=== PATIENT | female | born 1960 | race Asian ===

== ENCOUNTER 2016-07-19 19:42 | Emergency (ER) | payer OTHER ==
[~2016-07-19] VITALS: Ht 152.4 cm; Wt 52.7 kg
[~2016-07-19 19:42] MED LIST: ACET325T51 PO; ATEN25TA PO; DOCU250C2 PO; GING550C3 PO; L.AC1CAP6 PO; LEVO25TA5 PO; LOSA100T29 PO; MORP15TA PO; MORP30TA PO; MS15TCR PO; OMEP20CA11 PO; POLY17PO6 PO; PROM12.510 PO; PYRIDOXINE PO; SCOP1PAT TD; SENN-133 PO; TRAZ-115 PO
[2016-07-19 19:44] VITALS: BP 135/93; PULSE 87; RESP 16; O2SAT 100
[2016-07-19] MEDS ORDERED: 0.9% Sodium Chloride 1,000 ML IV ONE ×2 (21:02→22:35)
[2016-07-19] MEDS ORDERED: Ondansetron 2 mg/mL 2 mL Inj IV PRN (21:05)
[2016-07-19] MEDS ORDERED: HYDROmorphone 1 mg/mL Inj IVPUSH PRN (21:05)
[2016-07-19 21:10] LABS: BASOPHILS % (AUTO) 0.6 % (0-3); EOSINOPHILS % (AUTO) 1.8 % (0-5); Mean Corpuscular Hemoglobin 28.3 pg (27.0-35.0); Mean Corpuscular Volume 90.7 fL (81-100); NEUTROPHILS % (AUTO) 83.3 % (40-74); Platelet Count 168 bil/L (150-400)
[2016-07-19 21:22] LABS: Magnesium 2.5 mg/dL (1.6-2.6)
--- NOTE | 2016-07-19 21:40 | ED.REPORT ---
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 Associated symptoms include chills, non-productive cough, nausea, lack of appetite, vomiting, abdominal pain and constant generalized pain. Her most recent round of chemotherapy was four days ago. She has been unable to take pain medication due to vomiting, her last dose of morphine was yesterday. Pt denies diarrhea and dysuria. Nursing Notes Stated Complaint: VOMITING, NO APPETITE, PAIN Chief Complaint: Female Abdominal Pain Nursing Notes Reviewed: Yes Allergies: Coded Allergies: sulfamethoxazole (Verified Allergy, Severe, hives, wheezing, swelling, ) trimethoprim (Verified Allergy, Severe, hives, wheezing, swelling, 07/19/16 ) enalapril (Verified Adverse Reaction, Severe, itching throat, 07/19/16) Scheduled ([Vit B 6 300 Mg]) 1 TAB PO DAILY Atenolol (Atenolol) 25 Mg Tablet 50 MG PO DAILY Bailey Root (Bailey Root) 550 Mg Capsule 550 MG PO DAILY L.acidoph & Paracasei,B.lactis (Probiotic) 10 Billion Cell Capsule 2 TAB PO DAILY Levothyroxine (Levothyroxine) 25 Mcg Tablet 25 MCG PO DAILY Losartan Potassium (Losartan Potassium) 100 Mg Tablet 100 MG PO DAILY Morphine Sulfate (Morphine Sulfate) 30 Mg Tablet 30 MG PO BID Morphine Sulfate ER (MS Contin) 15 Mg Tablet.er 15 MG PO BID Omeprazole (Omeprazole) 20 Mg Capsule.dr 20 MG PO BID Polyethylene Glycol 3350 (Miralax) 17 Gm Powd.pack 17 GM PO DAILY Promethazine (Promethazine) 12.5 Mg Tablet 12.5-25 MG PO q6hrs Scopolamine (Transderm-Scop) 1 Each Patch.td72 1 EACH TD [id number] Sennosides (Senna) 8.6 Mg Tablet 17.2 MG PO HS Scheduled PRN Acetaminophen (Acetaminophen) 325 Mg Tablet 650 MG PO Q4H PRN PRN For Pain Docusate Sodium (Docusate Sodium) 250 Mg Capsule 250 MG PO BID PRN PRN For Constipation Morphine Sulfate (Morphine Sulfate) 15 Mg Tablet 15-30 MG PO q4hrs PRN PRN For Pain Trazodone (Trazodone) 50 Mg Tablet 50 MG PO HS PRN PRN Insomnia General Time Seen by MD: 20:47 Chief Complaint Vomiting Hx Obtained From: Patient, Spouse Arrived By: Walk-in Sudden in Onset?: Yes Onset Occurred: 9 - 12 hours ago Symptom Duration: Since onset Recent Healthcare: Recent doctor visit Similar Sx Previous: Yes Past Medical History Past Medical History Recurrent metastatic breast cancer luminal like, biopsy proven from lung nodule dated November 29, 2014. The patient is starting second-line chemotherapy with CMF on July 16, 2016. Goals are palliative. Left-sided stage III, T3 N2 breast cancer diagnosed in 2006, status post six cycles of TAC chemotherapy, last administered in September 2007, followed by chest wall radiation and five years of adjuvant Femara completed in December 2012. Osteopenia. Past Surgical History left masectomy Smoking History Former Smoker Social History Other Social History: , Local resident Ambulatory Status Independent Review of Systems lack of appetite generalized diffuse pain Full Review of Systems Constitutional: Reports: Chills, Weakness - generalized Respiratory: Reports: Non-productive cough GI: Reports: Abdominal pain, Nausea, Vomiting, Denies: Diarrhea Female: Denies: Dysuria Complete sys rev & neg: except as marked. Physical Exam Vital Signs Vital Signs Date Time Temp Pulse Resp B/P Pulse Ox O2 Delivery O2 Flow Rate FiO2 07/19/16 20:56 37.0 07/19/16 19:44 87 16 135/93 100 Room Air Initial VS: Reviewed ENT: Mucous membranes moist, Conjunctiva normal, No scleral icterus Neck: Supple, Non-tender, Full range of motion Respiratory: Breath sounds normal, Clear to auscultation, No respiratory distress Cardiovascular: Regular rate & rhythm, Heart sounds normal Abdomen / GI: Soft, Non-tender, No guarding, No rebound, No distention Lymphatic: No lymphadenopathy General/Constitutional: Awake, Cooperative Alertness: Positive: Somnolent cath in anterior chest wall, site looks clean Back: Inspection NL, Full range of motion, Non-tender, No CVA tenderness Lymphatic: No cervical adenopathy Interpretation & Diagnostics Lab Results Interpretation Result Diagram: 07/19/16200907/19/162009 Test 07/19/16 20:10 07/19/16 22:50 White Blood Count 3.4th/mm3 (3.8-10.1) Red Blood Count 3.96mil/mm3 (3.90-5.20) Hemoglobin 11.2g/dL (12.0-15.6) Hematocrit 35.9% (35.0-46.0) Mean Corpuscular Volume 90.7fL (81-100) Mean Corpuscular Hemoglobin 28.3pg (27.0-35.0) Mean Corpuscular Hemoglobin Concent 31.2% (32.0-37.0) Red Cell Distribution Width 14.9% (12.3-15.4) Platelet Count 168bil/L (150-400) Neutrophils (%) (Auto) 83.3% (40-74) Lymphocytes (%) (Auto) 11.3% (14-46) Monocytes (%) (Auto) 3.0% (4-12) Eosinophils (%) (Auto) 1.8% (0-5) Basophils (%) (Auto) 0.6% (0-3) Hold Purple Top Tube Received (Received) Hold Blue Top Tube Received (Received) Sodium Level 141mEq/L (134-144) Potassium Level 3.5mEq/L (3.5-5.2) Chloride Level 103mEq/L (97-108) Carbon Dioxide Level 21mmol/L (18-29) Blood Urea Nitrogen 17mg/dL (6-24) Creatinine 0.52mg/dL (0.57-1.00) Estimat Glomerular Filtration Rate 175mL/min (>59) Glucose Level 103mg/dL (60-99) Lactic Acid Level 1.3mmol/L (0.4-2.0) Calcium Level 7.9mg/dL (8.5-10.1) Magnesium Level 2.5mg/dL (1.6-2.6) Total Bilirubin 1.0mg/dL (0.0-1.2) Aspartate Amino Transf (AST/SGOT) 42U/L (0-50) Alanine Aminotransferase (ALT/SGPT) 28U/L (0-32) Alkaline Phosphatase 82U/L (25-150) Total Protein 6.8g/dL (6.4-8.4) Albumin 3.7g/dL (3.4-5.0) Hold Red Top Tube Received (Received) Hold [place] Top Tube Received (Received) Hold Patino Top Tube Received (Received) Urine Color Dark yellow (YELLOW) Urine Appearance Clear (CLEAR,HAZY) Urine pH 6.5 (5.0-8.0) Urine Specific Anthony 1.015 (1.003-1.035) Urine Protein Negativemg/dL (NEG,TRACE) Urine Glucose (UA) Negativemg/dL (NEGATIVE) Urine Ketones 15mg/dL (NEGATIVE) Urine Occult Blood Negative (NEGATIVE) Urine Nitrite Negative (NEGATIVE) Urine Bilirubin Negative (NEGATIVE) Urine Urobilinogen 1.0mg/dL (NORMAL) Urine Leukocyte Esterase Negative (NEGATIVE) Urine RBC 0-2/hpf (0-2) Urine WBC 0-5/hpf (0-5) Urine Epithelial Cells Occasional/hpf (NONE-MOD) Urine Crystals Amorphous urates (NONE Urine Bacteria Few/hpf (NONE-FEW) Urine Hyaline Casts Occasional/lpf (NONE) Urine Granular Casts None seen (NONE SEEN) Urine Waxy Casts None seen (NONE SEEN) Urine Red Blood Cell Casts None seen (NONE SEEN) Urine White Blood Cell Casts None seen (NONE SEEN) Urine Mucus Present (None Seen) Urine Trichomonas None seen (NONE SEEN) Urine Yeast None (NONE SEEN) Urinalysis Comment None Urine Culture Reflexed Not indicated Lab Results Interpretation: NC....2.82 Calcium corrects to 8.1 ECG Interpretation Time: 21:21 Normal ECG Interpretation: Normal sinus rhythm (80) X-Ray Chest Interpretation Chest Xray Interpretation: IMPRESSION: No acute cardiopulmonary disease process. Dictated by: Marissa Lopez MD, PhD on 07/19/2016 at 21:39 Approved by: Marissa Lopez MD, PhD on 07/19/2016 at 21:40 View: Portable Interpretation / Wet Read by: Interpret - Radiologist Re-Eval/Medical Decision Med Decision/Clinical Course NS x2L, IV zofran and dilaudid. symptoms improved. Time of Eval: 23:05 Patient Status: Condition improved Re-Evaluation/Progress Note: Pt rechecked. She is resting comfortably. Plan to consult with oncology and discharge. Consultation : Referral / Consult Name: Wesley Huizar MD Call Returned at: 23:15 Note: Dr. Huizar, oncology, is consulted. Agrees with plan for discharge with nausea medication and to follow up next week. Counseled Regarding: Diagnosis, Lab results, Need for follow-up, When/why to return to ED Discharge & Departure Primary Impression: Dehydration Additional Impressions: Nausea Vomiting Vomiting type: unspecified Vomiting Intractability: unspecified Nausea presence: with nausea Qualified Code: R11.2 - Nausea with vomiting, unspecified Disposition: Home Discharge Condition All VS Reviewed: Yes Condition: Stable Additional Instructions: In the emergency department tonight, we evaluated for vomiting and nausea with weakness. No acute infection is identified. Treatment of symptoms and IV hydration was helpful. We are very glad you are feeling better. Continue previous home nausea medications and try to get adequate fluids. Continue other previous home medications as well. Follow-up with Dr. Uribe next week, call the office on Thursday. Return to emergency department for uncontrolled vomiting, abdominal pain, fevers shaking chills or other new symptoms.. Referrals: Marisol Cosby MD (PCP) Lane Uribe Attestation Portion of this note were transcribed by Venessa Minaya. I, Dr. Arias, personally performed the history, physical exam, and medical decision-making: I reviewed and confirmed the accuracy for the information in the transcribed note. Signed by: carla Liu, 07/19/16 [id number] copies to: Lane Uribe DO; Marisol Cosby MD, Donald L MD Jul 19, 2016 21:39 Venessa Minaya Jul 19, 2016 21:54
--- NOTE | 2016-07-19 21:41 | DRSVH ---
PROCEDURE: X-RAY CHEST ONE VIEW, PORTABLE ([id number]) INDICATIONS: vomiting, weakness, metastatic breast ca TECHNIQUE: One view of the chest was acquired. COMPARISON: [facility], CR, XR CHEST 1VW (PORTABLE), 11/29/2014, 10:10. FINDINGS: Surgical changes and devices: Right chest wall Port-A-Cath. Left chest wall surgical clips. Lungs and pleura: No pleural effusions or pneumothorax. Lungs are clear. Mediastinum: Mediastinal contours appear normal. Heart size is normal. Bones and chest wall: No suspicious bony lesions. Overlying soft tissues appear unremarkable. IMPRESSION: No acute cardiopulmonary disease process. Dictated by: Marissa Lopez MD, PhD on 07/19/2016 at 21:39 Approved by: Marissa Lopez MD, PhD on 07/19/2016 at 21:40
[2016-07-19 23:02] LABS: APPEARANCE,URINE CLEAR (CLEAR,HAZY); COLOR,URINE DARK YELLOW (YELLOW); OCCULT BLOOD,URINE NEGATIVE (NEGATIVE); PH,URINE 6.5 (5.0-8.0)
[2016-07-19] MEDS ORDERED: HepLOK Flush 100 unit/mL 5 mL Inj ONE (23:57)
[2016-07-20 00:01] VITALS: BP 122/76; PULSE 77; RESP 18; O2SAT 96
[2016-09-08] MEDS ORDERED: MULT1CAP33 PO (11:50)
[2016-09-08] MEDS ORDERED: CHOL200025 PO (11:50)
[2016-09-24] MEDS ORDERED: CETI10CA PO (08:20)
[2016-10-08] MEDS ORDERED: OMEP20CA11 PO (09:03)
== END 2016-07-20 00:02 | disposition home or self-care (01) ==
LOC: SED 19:42
DX: E86.0 Dehydration (principal); R11.2 Nausea with vomiting, unspecified; Z85.3 Personal history of malignant neoplasm of breast; Z92.21 Personal history of antineoplastic chemotherapy; Z87.891 Personal history of nicotine dependence
CPT/HCPCS: 71010; 80053; 81000; 83605; 83735; 85025; 93005; 96361; 96374; 96375; 99285; J1170; J1642; J2405; J7030

== ENCOUNTER 2016-11-28 23:30 | Emergency (ER) | payer OTHER ==
[~2016-11-28] VITALS: Ht 152.4 cm; Wt 49.1 kg
[~2016-11-28 23:30] MED LIST changes: -ACET325T51 PO; +CETI10CA PO; +CHOL200025 PO; +EVER10TA PO; +EXEM25TA PO; -MORP15TA PO; -MORP30TA PO; -MS15TCR PO; +MULT1CAP33 PO; -PROM12.510 PO; -SCOP1PAT TD; -SENN-133 PO; -TRAZ-115 PO
[2016-11-28 23:34] VITALS: BP 119/83; PULSE 117; RESP 28; O2SAT 98
--- NOTE | 2016-11-29 00:34 | ED.REPORT ---
HPI-General Illness Date of Service Nov 29, 2016 ED Provider: Dr. Paxton Crowell MD A 56 year old female with a history of left-sided stage III metastatic, luminal- like breast cancer on fifth line therapy and Afinitor (began 11/06/16) s/p left mastectomy, chemotherapy and radiation treatment presents to the ED with dyspnea that began yesterday. Her SOB is exacerbated by lying down and with exertion. She presents to the ED this evening because with concern for apnea and a worsening productive cough. She also describes a pressure in her chest every time she coughs. She denies recent fever. Nursing Notes Stated Complaint: DIFFICULTY BREATHING, LUNG CA Chief Complaint: Respiratory Complaints Nursing Notes Reviewed: Yes Allergies: Coded Allergies: sulfamethoxazole (Verified Allergy, Severe, hives, wheezing, swelling, ) trimethoprim (Verified Allergy, Severe, hives, wheezing, swelling, 11/28/16 ) enalapril (Verified Adverse Reaction, Severe, itching throat, 11/28/16) Scheduled ([Vit B 6 300 Mg]) 1 TAB PO DAILY Atenolol (Atenolol) 25 Mg Tablet 50 MG PO DAILY Cetirizine HCl (Zyrtec) 10 Mg Capsule 10 MG PO HS Everolimus (Afinitor) 10 Mg Tablet 10 MG PO DAILY Exemestane (Aromasin) 25 Mg Tablet 25 MG PO DAILY Bailey Root (Bailey Root) 550 Mg Capsule 550 MG PO DAILY L.acidoph & Paracasei,B.lactis (Probiotic) 10 Billion Cell Capsule 2 TAB PO DAILY Levothyroxine (Levothyroxine) 25 Mcg Tablet 50 MCG PO DAILY Losartan Potassium (Losartan Potassium) 100 Mg Tablet 100 MG PO DAILY Omeprazole (Omeprazole) 20 Mg Capsule.dr 20 MG PO DAILY Polyethylene Glycol 3350 (Miralax) 17 Gm Powd.pack 17 GM PO DAILY Scheduled PRN Albuterol Neb Soln (Albuterol Neb Soln) 2.5 Mg/3 Ml Vial.neb 2.5 MG INHALATION Q4H PRN PRN For Cough Docusate Sodium (Docusate Sodium) 250 Mg Capsule 250 MG PO BID PRN PRN For Constipation Miscellaneous Medications Cholecalciferol (Vitamin D3) (Vitamin D3) 2,000 Unit Tablet 2,000 UNIT PO Multivitamin (Multivitamins) 1 Each Capsule 1 EACH PO General Time Seen by : 00:34 Chief Complaint Breathing problem Hx Obtained From: Patient Arrived By: Walk-in Sudden in Onset?: No Onset Occurred: Yesterday Symptom Duration: Since onset Location: : Chest Quality: Pressure Radiation: : Does not radiate Severity: Current: Mild Severity: Maximum: Mild Associated with: Reports: Chest pain (pressure), Cough, Shortness of breath, Denies: Fever Pertinent Negative: Pt denies other symptoms Exacerbated by: Moving affected area, Standing up Recent Healthcare: No recent hospitalization, Recent doctor visit Past Medical History Past Medical History 1. Recurrent metastatic breast cancer luminal like, biopsy proven from lung nodule dated November 29, 2014. The patient is starting second-line chemotherapy with CMF on July 16, 2016. Goals are palliative. 2. Left-sided stage III, T3 N2 breast cancer diagnosed in 2006, status post six cycles of TAC chemotherapy, last administered in September 2007, followed by chest wall radiation and five years of adjuvant Femara completed in December 2012. 3. Osteopenia. Past Surgical History Left masectomy Smoking History Former Smoker Social History Other Social History: , Local resident Ambulatory Status Walker Review of Systems Full Review of Systems Constitutional: Denies: Fever Respiratory: Reports: Dyspnea on exertion, Prod cough, clear, Shortness of breath Complete sys rev & neg: except as marked. Physical Exam Vital Signs Vital Signs Date Time Temp Pulse Resp B/P Pulse Ox O2 Delivery O2 Flow Rate FiO2 11/29/16 02:34 36.5 98 24 122/86 98 Room Air 11/28/16 23:34 36.5 117 28 119/83 98 Room Air Initial VS: Reviewed Extremities: Vascular intact, Neuro intact, No swelling, No tenderness Skin: Warm, Dry, No cyanosis Neurologic: Alert, Oriented, Nonfocal Psychiatric: Mood/affect normal, Behavior normal, Normal thought content General/Constitutional: Awake, Alert, No acute distress Respiratory / Chest: Atraumatic Rales / Rhonchi: Positive: Rales diffuse (Crackles diffuse) RESPIRATORY: Dull sounds in the left base Cardiovascular: Heart rate NL, Regular rhythm, Heart sounds NL Abdomen: Atraumatic, Soft Interpretation & Diagnostics X-Ray Chest Interpretation Chest Xray Interpretation: IMPRESSION: ilateral pleural effusion Interpretation / Wet Read by: Wet read ED physician Re-Eval/Medical Decision Med Decision/Clinical Course 56-year-old end-stage breast cancer metastatic to liver and lung. She presents with shortness of breath and has some component of bronchospasm, and some component of progressive pleural effusions. She is improved with a nebulizer and had one provided for home use. Follow-up with Dr. Uribe on Thursday. Return if worse. Time of Eval: 02:06 Patient Status: Condition improved Re-Evaluation/Progress Note: Patient is re-evaluated. Her breathing has improved following treatment. She is informed of her X-ray results and diagnosis. The patient understands and agrees with the intended treatment plan. Counseled Regarding: Diagnosis, Lab results, Need for follow-up, When/why to return to ED Discharge & Departure Primary Impression: Bilateral pleural effusion Additional Impressions: Bronchospasm Dyspnea Dyspnea type: unspecified Qualified Code: R06.00 - Dyspnea, unspecified Malignant pleural effusion Disposition: Home Discharge Condition All VS Reviewed: Yes Condition: Improved Patient Instructions: Bronchospasm (ED), Dyspnea (ED), How to Use a Nebulizer ( ED), Pleural Effusion (ED) Additional Instructions: Your oxygen level is currently normal. The discomfort you are feeling is from fluid pressure around the lungs, and some element of bronchospasm in the tubes of the lung. Begin albuterol nebulizer every four hours if you need for tightness and cough. If you are oxygen declines, you may qualify for oxygen at home, but it would not be covered by most insurances with a normal oxygen level on room air. Your doctor can manage that. Call Dr. Uribe first thing Thursday for follow-up. Return here any time over the weekend for new or worsening symptoms despite treatment. Referrals: Marisol Cosby MD (PCP) Scribe Attestation Portions of this note were transcribed by Ivonne Cruz. I, Dr. Crowell personally performed the history, physical exam and medical decision-making; I reviewed and confirmed the accuracy of the information in the transcribed note. copies to: Marisol Cosby MD, Christopher W MD Nov 29, 2016 00:34 IVONNE CRUZ Nov 29, 2016 00:43
[2016-11-29] MEDS ORDERED: Albuterol-Ipratropium 3 mL Inhalation Solution NEB ONE (00:45)
[2016-11-29] MEDS ORDERED: Albuterol 2.5 mg/3 mL Inhalation Solution NEB ONE ×2 (00:45→02:25)
[2016-11-29] MEDS ORDERED: Dexamethasone 20 mg/2 mL Oral Solution PO ONE (00:45)
[2016-11-29] MEDS ORDERED: ALBU2.5V4 INHALATION (02:21)
[2016-11-29 02:34] VITALS: BP 122/86; PULSE 98; RESP 24; O2SAT 98
--- NOTE | 2016-11-29 08:22 | DRSVH ---
PROCEDURE: X-RAY CHEST, TWO VIEWS ([id number]) INDICATIONS: sob TECHNIQUE: 2 views of the chest were acquired. COMPARISON: [facility], CR, XR CHEST 1VW (PORTABLE), 07/19/2016, 21:02. FINDINGS: Surgical changes and devices: Right chest port as before. Lungs and pleura: Small bilateral pleural effusions with adjacent atelectasis. Mild diffuse groundgla ss opacities. No pneumothorax. There is increased right perihilar opacity, indeterminate Mediastinum: Mediastinal contours are normal. Heart size is normal. Bones and chest wall: No suspicious bony abnormalities. Soft tissues appear unremarkable. IMPRESSION: Bilateral small pleural effusions and diffuse groundglass opacities suggesting pulmonary edema. Pleas e correlate clinically Increased right perihilar opacity although technically indeterminate. Recommend short interval one-mo nth followup chest radiographs after treatment to exclude right hilar lymphadenopathy or mass. Dictated by: Ellis Menendez M.D. on 11/29/2016 at 8:18 Approved by: Ellis Menendez M.D. on 11/29/2016 at 8:20
== END 2016-11-29 02:34 | disposition home or self-care (01) ==
LOC: SED 23:30
DX: J91.0 Malignant pleural effusion (principal); J98.01 Acute bronchospasm; Z87.891 Personal history of nicotine dependence; Z85.3 Personal history of malignant neoplasm of breast; Z79.899 Other long term (current) drug therapy; Z88.8 Allergy status to other drugs, medicaments and biological substances
CPT/HCPCS: 71020; 99284; J7613; J7620

== ENCOUNTER 2016-12-11 09:39 | Inpatient (IN) | payer OTHER ==
[2016-12-11] VITALS (7 sets, daily range): BP systolic 100–143; BP diastolic 67–109; PULSE 115–125; RESP 17–27; O2SAT 77–100
[~2016-12-11] VITALS: Ht 152.4 cm; Wt 55.0 kg
[~2016-12-11 09:39] MED LIST changes: +ALBU2.5V4 INHALATION
--- NOTE | 2016-12-11 09:39 | ED.REPORT ---
HPI-Dyspnea / Wheezing Date of Service Dec 11, 2016 ED Provider: Vanita Marmolejo MD The pt is a 56 y/o female w/ a hx of stage 4 breast cancer and and osteopenia presenting to the ED via EMS due to SOB onset 1 week ago. The SOB has been becoming increasingly worse and the pt has also been experiencing abdominal bloating for the last three weeks as well and hand and foot swelling over the last two days. The pt is usually on 15 mg of long acting morphine and 15 mg of short acting morphine but has not taken either this morning. She is taking a chemo pill, is not on home oxygen, is not involved w/ hospice, and is able to eat and drink normally. She also uses edible marijuana which helps with the pain. Nursing Notes Stated Complaint: RESPIRATORY DISTRESS COUGH Chief Complaint: SOB Nursing Notes Reviewed: Yes Allergies: Coded Allergies: sulfamethoxazole (Verified Allergy, Severe, hives, wheezing, swelling, ) trimethoprim (Verified Allergy, Severe, hives, wheezing, swelling, 11/28/16 ) enalapril (Verified Adverse Reaction, Severe, itching throat, 11/28/16) Scheduled ([Vit B 6 300 Mg]) 1 TAB PO DAILY Atenolol (Atenolol) 25 Mg Tablet 50 MG PO DAILY Cetirizine HCl (Zyrtec) 10 Mg Capsule 10 MG PO HS Everolimus (Afinitor) 10 Mg Tablet 10 MG PO DAILY Exemestane (Aromasin) 25 Mg Tablet 25 MG PO DAILY Bailey Root (Bailey Root) 550 Mg Capsule 550 MG PO DAILY L.acidoph & Paracasei,B.lactis (Probiotic) 10 Billion Cell Capsule 2 TAB PO DAILY Levothyroxine (Levothyroxine) 25 Mcg Tablet 50 MCG PO DAILY Losartan Potassium (Losartan Potassium) 100 Mg Tablet 100 MG PO DAILY Omeprazole (Omeprazole) 20 Mg Capsule.dr 20 MG PO DAILY Polyethylene Glycol 3350 (Miralax) 17 Gm Powd.pack 17 GM PO DAILY Scheduled PRN Albuterol Neb Soln (Albuterol Neb Soln) 2.5 Mg/3 Ml Vial.neb 2.5 MG INHALATION Q4H PRN PRN For Cough Docusate Sodium (Docusate Sodium) 250 Mg Capsule 250 MG PO BID PRN PRN For Constipation Miscellaneous Medications Cholecalciferol (Vitamin D3) (Vitamin D3) 2,000 Unit Tablet 2,000 UNIT PO Multivitamin (Multivitamins) 1 Each Capsule 1 EACH PO General Time Seen by MD: 09:38 Chief Complaint Shortness of breath Hx Obtained From: Patient Arrived By: Ambulance Sudden in Onset?: Yes Onset Occurred: 1 week ago Symptom Duration: Since onset Recent Healthcare: Recent doctor visit Past Medical History Past Medical History 1. Recurrent metastatic breast cancer luminal like, biopsy proven from lung nodule dated November 29, 2014. The patient is starting second-line chemotherapy with CMF on July 16, 2016. Goals are palliative. 2. Left-sided stage III, T3 N2 breast cancer diagnosed in 2006, status post six cycles of TAC chemotherapy, last administered in September 2007, followed by chest wall radiation and five years of adjuvant Femara completed in December 2012. 3. Osteopenia. Past Surgical History Left masectomy Smoking History Former Smoker Social History Other Social History: , Local resident Ambulatory Status Walker Review of Systems Denies changes in eating or drinking Respiratory: Reports: Shortness of breath Musculoskeletal: Reports: Extremity swelling (of hands and feet ) Complete sys rev & neg: except as marked. GI: Reports: Abdominal pain (w/ bloating ) Physical Exam Initial Vital Signs Vital Signs (First) Date Time Temp Pulse Resp B/P Pulse Ox O2 Delivery O2 Flow Rate FiO2 12/11/16 09:41 36.4 122 27 143/109 77 Room Air 12/11/16 11:05 10 Initial VS: Reviewed General/Constitutional: Awake, Alert Behavior: Positive: Anxious Neck: Atraumatic, Supple, Full range of motion Respiratory / Chest: Breath sounds = bilat Diminished Breath Sounds: Positive: Decreased bilateral SaO2 of 76% w/ significant work of breathing L mastectomy Cardiovascular: Heart rate NL, Regular rhythm, Heart sounds NL edema of hands and lower extremities ENT: Airway patent, Mucous membranes moist Abdomen: No palpable mass Abdomen is distended and firm w/o significant ascites that more resembles liver enlargement Skin: No rash, Intact Skin is pale and cachectic Head / Eyes: Normocephalic Interpretation & Diagnostics PROCEDURE: CT ANGIO CHEST PULMONARY EMBOLISM ([id number]) IMPRESSION: No pulmonary embolus found. Increasing bilateral pleural effusions, greater on the left than the right, with increased bilateral atelectasis secondary to the effusions, and there is also superimposed mild pulmonary edema/lesser of the lung parenchyma with clear visualization of the areas of pre-existing emphysematous change as a result. Please also refer to dedicated abdomen/pelvis CT with contrast obtained today. Dictated by: Jacobo Antonio M.D. on 12/11/2016 at 13:57 Approved by: Jacobo Antonio M.D. on 12/11/2016 at 14:04 Lab Results Interpretation Result Diagram: 12/11/16 1007 12/11/16 1007 Test 12/11/16 10:07 White Blood Count 13.4th/mm3 (3.8-10.1) Red Blood Count 4.44mil/mm3 (3.90-5.20) Hemoglobin 12.6g/dL (12.0-15.6) Hematocrit 40.3% (35.0-46.0) Mean Corpuscular Volume 90.8fL (81-100) Mean Corpuscular Hemoglobin 28.4pg (27.0-35.0) Mean Corpuscular Hemoglobin Concent 31.3% (32.0-37.0) Red Cell Distribution Width 17.0% (12.3-15.4) Platelet Count 258bil/L (150-400) Neutrophils (%) (Auto) 92.0% (40-74) Lymphocytes (%) (Auto) 2.2% (14-46) Monocytes (%) (Auto) 5.3% (4-12) Eosinophils (%) (Auto) 0.2% (0-5) Basophils (%) (Auto) 0% (0-3) Sodium Level 135mEq/L (134-144) Potassium Level 5.0mEq/L (3.5-5.2) Chloride Level 96mEq/L (97-108) Carbon Dioxide Level 19mmol/L (18-29) Blood Urea Nitrogen 30mg/dL (6-24) Creatinine 1.02mg/dL (0.57-1.00) Estimat Glomerular Filtration Rate 80mL/min (>59) Glucose Level 110mg/dL (60-99) Calcium Level 8.4mg/dL (8.5-10.1) Total Bilirubin 0.8mg/dL (0.0-1.2) Aspartate Amino Transf (AST/SGOT) 152U/L (0-50) Alanine Aminotransferase (ALT/SGPT) 51U/L (0-32) Alkaline Phosphatase 279U/L (25-150) Troponin T 0.047ug/L (0.0-0.011) Total Protein 6.7g/dL (6.4-8.4) Albumin 3.0g/dL (3.4-5.0) Procalcitonin 0.67ng/mL (0.00-0.08) Hold Patino Top Tube Received (Received) X-Ray Chest Interpretation Chest Xray Interpretation: IMPRESSION: 1. Pulmonary edema. 2. Small bilateral pleural fluid collections, left greater than right. 3. Increased opacification left lung base compatible with compressive atelectasis versus less likely pneumonia or aspiration. Please correlate with clinical and laboratory data. Dictated by: Marissa Lopez MD, PhD on 12/11/2016 at 10:41 Approved by: Marissa Lopez MD, PhD on 12/11/2016 at 10:43 View: Portable, 1 view Interpretation / Wet Read by: Interpret - Radiologist CT Abd / Pelvis Interpretation 1. Moderate to large bilateral pleural effusions, mildly increased compared to prior exam. 2. Extensive hepatic metastatic disease, progressive compared to prior exam. 3. Marked abdominal pelvic ascites, increased from prior exam. 4. Extensive osseous metastatic disease, again noted. Dictated by: Sona Giang M.D. on 12/11/2016 at 12:59 Approved by: Sona Giang M.D. on 12/11/2016 at 13:07 Study type: Abdom CT oral contrast Interpretation / Wet Read by: Interpret - Radiologist Re-Eval/Medical Decision Med Decision/Clinical Course Widely metastatic breast cancer. Severe dyspnea with oxygen saturations in the mid 70s due to bilateral pleural effusions and increasing abdominal ascites. Lung discussion with patient and her . At this point would like as much invasive interventions as possible. Have contacted Dr. Naga Cline to see if he can help with draining the malignant pleural effusions and ascites along with all of the complex decision making points that go into those issues. Patient is interested in hospice and would like to go home as soon as as physically possible. Hospice/palleative care consult will need to be obtained Understands the need to change her CODE STATUS to no code She has 2 sons who are currently in the , [place] has been contacted to suggest that they return home Dr. Uribe, her oncologist has been notified of her admission Source of Hx: Old records Re-Evaluation/Progress : Time of Eval: 11:33 Re-Evaluation/Progress Note: Rechecked pt. Discussed plan for CT w/ pts . Consultation #1: Referral / Consult Name: Hollie Neal MD Call Returned at: 11:41 Note: Spoke to radiology to ensure that CT is ordered appropriately. Consultation #2: Consulted With: Surgeon Call Returned at: 16:14 Note: Dr Cline will eval to help with thoracentesis/palliative options Consultation #3: Consulted With: Hospitalist Call Returned at: 16:15 Support Services Coordinator: Will see patient, Agrees with plan, Accepts admit Note: Dr Pelayo Counseled Regarding: Diagnosis, Lab results, Need for admission Discharge & Departure Impression: Primary Impression: Malignant pleural effusion Additional Impressions: Dyspnea Dyspnea type: unspecified Qualified Code: R06.00 - Dyspnea, unspecified Ascites Ascites type: other type Qualified Code: R18.8 - Other ascites Metastatic breast cancer Disposition: ADMITTED TO HOSPITAL Discharge Condition All VS Reviewed: Yes Condition: Stable Referrals: Marisol Cosby MD (PCP) Scribe Attestation Portions of this note were transcribed by Lele Mcmahan. I, Dr. Marmolejo personally performed the history, physical exam and medical decision-making; I reviewed and confirmed the accuracy of the information in the transcribed note. copies to: Lane Uribe DO; Marisol Cosby MD, Shawna L MD Dec 11, 2016 09:39 Lele Mcmahan Dec 11, 2016 10:35
[2016-12-11] MEDS ORDERED: 0.9% Sodium Chloride 1,000 ML IV ONE (10:02)
[2016-12-11] MEDS ORDERED: HYDROmorphone 1 mg/mL Inj IVPUSH ONE ×2 (10:10→15:30)
[2016-12-11] MEDS ORDERED: HYDROmorphone 1 mg/mL Inj IVPUSH PRN (10:10)
[2016-12-11 10:16] LABS: BASOPHILS % (AUTO) 0 % (0-3); EOSINOPHILS % (AUTO) 0.2 % (0-5); MONOCYTES % (AUTO) 5.3 % (4-12); Mean Corpuscular Hemoglobin 28.4 pg (27.0-35.0); Mean Corpuscular Volume 90.8 fL (81-100); Platelet Count 258 bil/L (150-400)
--- NOTE | 2016-12-11 10:44 | DRSVH ---
PROCEDURE: X-RAY CHEST ONE VIEW, PORTABLE ([id number]) INDICATIONS: dyspnea TECHNIQUE: One view of the chest was acquired. COMPARISON: [facility], CR, XR CHEST 1VW, 12/02/2016, 11:53. [facility], CR, XR CHEST 1VW (PORTABLE), 07/19/2016, 21:02. FINDINGS: Surgical changes and devices: Right chest wall Port-A-Cath is stable. Cholecystectomy clips are stabl e. Left axillary clips stable. Lungs and pleura: Bilateral pleural effusions are noted. Cephalization of pulmonary vasculature and b ilateral perihilar opacities noted compatible with pulmonary edema. Increased opacification of the le ft lung base which could represent compressive atelectasis versus pneumonia or aspiration. Mediastinum: Mediastinal contours appear normal. Heart size is normal. Bones and chest wall: No suspicious bony lesions. Overlying soft tissues appear unremarkable. IMPRESSION: 1. Pulmonary edema. 2. Small bilateral pleural fluid collections, left greater than right. 3. Increased opacification left lung base compatible with compressive atelectasis versus less likely pneumonia or aspiration. Please correlate with clinical and laboratory data. Dictated by: Marissa Lopez MD, PhD on 12/11/2016 at 10:41 Approved by: Marissa Lopez MD, PhD on 12/11/2016 at 10:43
[2016-12-11 11:06] LABS: TROPONIN T 0.047 ug/L (0.0-0.011)
--- NOTE | 2016-12-11 14:06 | DRSVH ---
PROCEDURE: CT ANGIO CHEST PULMONARY EMBOLISM ([id number]) INDICATIONS: dyspnea, hypoxia, metastatic cancer TECHNIQUE: After the administration of intravenous contrast, 2 mm thick sections acquired from the pulmonary api vincent to the posterior costophrenic angles. 3-dimensional maximum intensity projection (MIP) coronal a nd sagittal reformats were then acquired through the thorax. For radiation dose reduction, the follo wing was used: automated exposure control, adjustment of mA and/or kV according to patient size. COMPARISON: [facility], CT, CT ABD PELVIS W CON, 12/11/2016, 13:12. [facility], CT, CT CHEST ABD PELVIS W CON, 10/31/2016, 12:36. FINDINGS: Image quality: Excellent. Pulmonary arteries: Pulmonary arteries are normal in size, and demonstrate no intraluminal filling d efects to suggest central pulmonary embolism. Lungs and pleura: Lungs are abnormal with extensive atelectasis associated with bilateral large left greater than right pleural effusions, resulting in atelectasis greater on the left than the right. The pleural effusions show a subtle finding of parietal slight pleural thickening and enhancement. T his raises concern for presence of carcinomatosis as the underlying cause. No pneumothorax. The ae rated lung parenchyma appears plethoric/edematous, with emphysematous change. Central and peripheral airways are patent. Mediastinum: Heart size is normal, without pericardial effusion. No mediastinal or hilar adenopathy . Thoracic aorta is normal in caliber and enhancement. Esophagus is normal in caliber, without hiat al hernia. Bones and chest wall: No suspicious bony lesions. Ribs and thoracic spine appear intact throughout. Thyroid gland appears normal where well visualized. No axillary or supraclavicular adenopathy. Abdomen: Please refer to dedicated CT abdomen/pelvis performed in concert with this examination, for discussion of the extensive pathology involving the liver. IMPRESSION: No pulmonary embolus found. Increasing bilateral pleural effusions, greater on the left than the right, with increased bilateral atelectasis secondary to the effusions, and there is also superimposed mild pulmonary edema/lesser of the lung parenchyma with clear visualization of the areas of pre-existing emphysematous change as a result. Please also refer to dedicated abdomen/pelvis CT with contrast obtained today. Dictated by: Jacobo Antonio M.D. on 12/11/2016 at 13:57 Approved by: Jacobo Antonio M.D. on 12/11/2016 at 14:04
--- NOTE | 2016-12-11 14:09 | DRSVH ---
PROCEDURE: CT ABDOMEN AND PELVIS WITH CONTRAST ([id number]) INDICATIONS: dyspnea, metastatic cancer TECHNIQUE: After the administration of intravenous contrast, 5 mm thick sections acquired from the diaphragm to the symphysis. 5 mm coronal and sagittal reformats were acquired. For radiation dose reduction, the following was used: automated exposure control, adjustment of mA and/or kV according to patient adrian vines. COMPARISON: [facility], CT, CT CHEST ABD PELVIS W CON, 10/31/2016, 12:36. FINDINGS: Image quality: Excellent. ABDOMEN: Lung bases: Lung bases demonstrate moderate to large left and moderate right pleural effusion, mildl y increased compared to prior exam. Heart size is normal. Solid organs: Liver demonstrates innumerable low attenuation hepatic foci, increasing in size and nu mber compared to prior exam. The spleen is normal in size and enhancement. Gallbladder has been aung arabella. Biliary system is non dilated. Pancreas enhances normally. No adrenal nodules. Kidneys demon strate normal size and enhancement, without hydronephrosis. Peritoneum and bowel: Bowel loops demonstrate normal wall thickness and caliber. However, they are partially obscured by significant abdominal and pelvic ascites, markedly increased compared to prior exam. No free fluid or air. Nodes and vessels: No retroperitoneal or mesenteric adenopathy by size criteria. Aorta and inferior vena cava are normal in size. Miscellaneous: No ventral hernias. PELVIS: Genitourinary: Bladder wall thickness is normal. There is a persistent appearance of nodular enhanc ement along the anterior aspect of the uterus suggestive of peritoneal metastatic implant. Miscellaneous: No inguinal hernias or adenopathy. Bones: Extensive osseous metastatic disease is again identified with stable L3 compression deformity. . No vertebral body compression fractures. IMPRESSION: 1. Moderate to large bilateral pleural effusions, mildly increased compared to prior exam. 2. Extensive hepatic metastatic disease, progressive compared to prior exam. 3. Marked abdominal pelvic ascites, increased from prior exam. 4. Extensive osseous metastatic disease, again noted. Dictated by: Sona Giang M.D. on 12/11/2016 at 12:59 Approved by: Sona Giang M.D. on 12/11/2016 at 13:07
[2016-12-11] MEDS ORDERED: Morphine ER 100 mg (MS Contin) Tablet PO ONE (15:30)
[2016-12-11] MEDS ORDERED: Morphine ER 15 mg (MS Contin) Tablet PO ONE (15:35)
[2016-12-11] MEDS ORDERED: MORP-32 PO (16:18)
[2016-12-11] MEDS ORDERED: MORP15TA PO (16:18)
[2016-12-11] MEDS ORDERED: CETI5TAB28 PO (16:18)
--- NOTE | 2016-12-11 17:02 | CONS ---
[address] [address] CONSULTATION REPORT PATIENT: MILLICENT DEL REAL : 1960 MR#: [id number] ADMIT: 12/11/2016 JOB ID: [id number] DATE OF SERVICE: 12/11/2016 REQUESTED BY: Vanita Marmolejo MD HISTORY OF PRESENT ILLNESS: The patient is an unfortunate 56-year-old female with stage 4 breast cancer on 5th line treatment. I was asked to see her because of a large recurrent left pleural effusion with associated shortness of breath and hypoxia. She has widely metastatic hepatic lesions. She had an ultrasonic guided left thoracentesis 10 days ago that drained approximately a liter. There was no chest x-ray after the thoracentesis. The patient reports that she did not get significant improvement in her coughing and shortness of breath. She had a CT scan of the chest PE protocol and then a CT scan abdomen and pelvis today. These studies show increasing bilateral left greater than right pleural effusions with bilateral atelectasis. There is no evidence of a pulmonary embolus. There is pleural thickening and enhancement suggesting carcinomatosis. Her abdomen again shows extensive hepatic metastatic disease which is progressive. There was also pelvic ascites and also extensive osseous metastatic disease. REVIEW OF SYSTEMS: Otherwise negative. PHYSICAL EXAMINATION: Diminutive [place] woman with close supportive family. She is in no acute distress. BMI 21. Temperature 36.4, brachial blood pressure 126/96, pulse 125, respiratory rate 17, O2 sat on 6 L is 100%. Lungs: Decreased breath sounds bilaterally. Cardiac: Regular rhythm. I did not appreciate any murmurs. IMAGING: CT scan of the chest and abdomen are reviewed today, as well as the results of the ultrasound from 10 days ago. LABORATORY RESULTS: From today: White count 13.4, hematocrit is 40, platelet count 258,000. Electrolytes are normal. Creatinine 1.02, glucose 110. IMPRESSION: Large left greater than right pleural effusions. The patient's overall symptomatology did not improve significantly by her history from her last thoracentesis. Before proceeding to another level of management of her pleural effusion such as a chest tube with possible talc sclerosis or a PleurX catheter, I believe another thoracentesis should be performed. If this significantly improves respiratory symptoms and overall adds to palliation, then the next level of intervention could be considered. However, if there is no improvement, then I do not think that up-staging her level of intervention for her pleural fluid would be of any benefit. Also, she very well may have pleural effusions secondary to malignant ascites and in that case there is a relative contraindication to doing anything about the pleural fluid, but I think it is reasonable to do another thoracentesis. I have discussed this with Mannie Amezcua RPA from Radiology. I have put in the order, and also put an order for a chest x-ray to be done after the thoracentesis, and then she can be reassessed tomorrow morning.
--- NOTE | 2016-12-11 17:15 | DRSVH ---
PROCEDURE: X-RAY CHEST ONE VIEW, PORTABLE ([id number]) INDICATIONS: do after thoracentesis TECHNIQUE: One view of the chest was acquired. COMPARISON: [facility], CT, CT ANGIO CHEST PE, 12/11/2016, 13:12. [facility] , CR, XR CHEST 1VW (PORTABLE), 12/11/2016, 10:01. [facility], CR, XR CHEST 1VW, 12/02/2016 , 11:53. FINDINGS: Surgical changes and devices: Port-A-Cath from a right-sided approach extends into the distal SVC. S urgical clips at the left axilla have been previously present and may indicate prior breast carcinoma surgery on that side. Lungs and pleura: No pneumothorax. Lungs are mildly edematous and there likely is a subpulmonic ple ural effusion bilaterally, relatively small in size by plain film appearance. Mediastinum: Mediastinal contours appear normal. Heart size is normal. Bones and chest wall: No suspicious bony lesions. Overlying soft tissues appear unremarkable. IMPRESSION: No pneumothorax, after reported thoracentesis. Port-A-Cath in normal position within the distal SVC. Dictated by: Jacobo Antonio M.D. on 12/11/2016 at 17:11 Approved by: Jacobo Antonio M.D. on 12/11/2016 at 17:13
--- NOTE | 2016-12-11 17:32 | PCM.HPMED ---
Subjective Date of Service Dec 11, 2016 Primary Provider: Admitting Physician: Talat Nava Primary Care Physician: Marisol Cosby MD Attending Physician: Talat Nava Chief Complaint: shortness of breath History of Present Illness: Very pleasant 56 year old female with known diagnosis of metastatic recurrent luminal-like breast cancer, on fifth line therapy with exemestane and Afinitor that was started on November 06, 2016 presents with progressive worsening of shortness of breath over the past several days. She underwent therapeutic thoracentesis about one week ago but today the imaging in the ED (details as noted below) is suggestive of worsening bilateral pleural effusions. Patient is now requesting comfort care only approach and wishes to be setup with hospice at home. General surgery has been consulted in the ED for consideration of further palliative surgical intervention on this very pleasant but unfortunate patient. In addition to the chief complaint noted above patient also reports increased abdominal distention and discomfort. She also reports ongoing weight loss as well as peripheral neuropathy and parasthesias. Review of Systems: Constitutional: Negative, except as otherwise mentioned in the history above. Ophthalmologic: Negative, except as otherwise mentioned in the history above. Cardiovascular: Negative, except as otherwise mentioned in the history above. Respiratory: Negative, except as otherwise mentioned in the history above. Gastrointestinal: Negative, except as otherwise mentioned in the history above. Genitourinary: Negative, except as otherwise mentioned in the history above. Musculoskeletal: Negative, except as otherwise mentioned in the history above. Neurological: Negative, except as otherwise mentioned in the history above. Psychiatric: Negative, except as otherwise mentioned in the history above. Hematologic/Lymphatic: Negative, except as otherwise mentioned in the history above. Allergic/Immunologic: Negative, except as otherwise mentioned in the history above. Allergies Coded Allergies: sulfamethoxazole (Verified Allergy, Severe, hives, wheezing, swelling, ) trimethoprim (Verified Allergy, Severe, hives, wheezing, swelling, 11/28/16 ) enalapril (Verified Adverse Reaction, Severe, itching throat, 11/28/16) Home Medications Cetirizine 10 Mg PO DAILY PRN Everolimus 10 Mg Tablet 10 Mg PO DAILY Exemestane 25 Mg PO DAILY Albuterol Neb Soln 2.5 Mg INHALATION Q4H PRN Morphine Sulfate 15 Mg PO DIRECTED PRN Morphine Sulfate ER 15 Mg PO BID Docusate Sodium 250 Mg PO BID PRN Omeprazole 20 Mg PO DAILY Levothyroxine 50 Mcg PO DAILY Cholecalciferol (Vitamin D3) 2,000 Unit PO Multivitamin 1 Each Capsule (Multivitamins) 1 Each PO Exam Vital Signs & I/O Vital Sign- Last 8 Hours Date Time Temp Pulse Resp B/P Pulse Ox O2 Delivery O2 Flow Rate FiO2 12/11/16 16:04 125 17 126/96 100 Room Air 6 Non-Rebreather 12/11/16 15:58 125 17 126/96 100 6 12/11/16 14:10 118 17 111/80 98 Non-Rebreather 10 12/11/16 11:05 118 20 135/94 99 Non-Rebreather 10 12/11/16 09:41 36.4 122 27 143/109 77 Room Air Lab & Micro Results Laboratory Tests Test 12/11/16 10:07 White Blood Count 13.4th/mm3 (3.8-10.1) Red Blood Count 4.44mil/mm3 (3.90-5.20) Hemoglobin 12.6g/dL (12.0-15.6) Hematocrit 40.3% (35.0-46.0) Mean Corpuscular Volume 90.8fL (81-100) Mean Corpuscular Hemoglobin 28.4pg (27.0-35.0) Mean Corpuscular Hemoglobin Concent 31.3% (32.0-37.0) Red Cell Distribution Width 17.0% (12.3-15.4) Platelet Count 258bil/L (150-400) Neutrophils (%) (Auto) 92.0% (40-74) Lymphocytes (%) (Auto) 2.2% (14-46) Monocytes (%) (Auto) 5.3% (4-12) Eosinophils (%) (Auto) 0.2% (0-5) Basophils (%) (Auto) 0% (0-3) Sodium Level 135mEq/L (134-144) Potassium Level 5.0mEq/L (3.5-5.2) Chloride Level 96mEq/L (97-108) Carbon Dioxide Level 19mmol/L (18-29) Blood Urea Nitrogen 30mg/dL (6-24) Creatinine 1.02mg/dL (0.57-1.00) Estimat Glomerular Filtration Rate 80mL/min (>59) Glucose Level 110mg/dL (60-99) Calcium Level 8.4mg/dL (8.5-10.1) Total Bilirubin 0.8mg/dL (0.0-1.2) Aspartate Amino Transf (AST/SGOT) 152U/L (0-50) Alanine Aminotransferase (ALT/SGPT) 51U/L (0-32) Alkaline Phosphatase 279U/L (25-150) Troponin T 0.047ug/L (0.0-0.011) Total Protein 6.7g/dL (6.4-8.4) Albumin 3.0g/dL (3.4-5.0) Procalcitonin 0.67ng/mL (0.00-0.08) Hold Patino Top Tube Received (Received) Microbiology 12/11/16 Blood Culture, Received Pending Result Diagram: 12/11/16 1007 12/11/16 1007 [facility] Recurrent metastatic breast cancer diagnosed from a lung biopsy lesion dated November 29, 2014 Recently on 5th line therapy with Afinitor and exemestane started November 06, 2016. Hypothyroidism Family History Denies any family history of heart disease Social History Hx Alcohol Use: No Hx Substance Use: No Smoking Status: Former Smoker (quit many years ago) Exam Vital Signs Vital Sign - Last Date Time Temp Pulse Resp B/P Pulse Ox O2 Delivery O2 Flow Rate FiO2 12/11/16 16:04 125 17 126/96 100 Room Air 6 Non-Rebreather 12/11/16 09:41 36.4 General: Alert, Oriented X3, Cooperative, Mild Distress Head: Normal Eyes: PERRLA, EOMI, Scleral Anicteric Nose: Mucous Membr Moist/Dickey Mouth: Mucous Membr Moist/Dickey Neck: Supple Chest & Lungs: Chest Wall Normal, Coarse breath sounds, Crackles (fine bilateral) Cardiovascular: Regular Rate/Rhythm Pulses: NL carotid, radial, femoral, DP, PT Abdomen: Tender, Distended, Normoactive bowel tones Extremities: Other (1+ pitting edema in LE bilaterally up to the knees) Neurological: Grossly Neurologically Intact, Cranial Nerves 2-12 Intact, Normal Speech Additional Information: Psych: Calm, pleasant, appropriate Lab and Diagnostics Result Diagram: 12/11/16 1007 12/11/16 1007 X-Rays, CTs and MRIs Date of Service: 12/11/16 1002 PROCEDURE: X-RAY CHEST ONE VIEW, PORTABLE ([id number]) IMPRESSION: 1. Pulmonary edema. 2. Small bilateral pleural fluid collections, left greater than right. 3. Increased opacification left lung base compatible with compressive atelectasis versus less likely pneumonia or aspiration. Please correlate with clinical and laboratory data. Dictated by: Marissa Lopez MD, PhD on 12/11/2016 at 10:41 Approved by: Marissa Lopez MD, PhD on 12/11/2016 at 10:43 Date of Service: 12/11/16 1121 PROCEDURE: CT ANGIO CHEST PULMONARY EMBOLISM ([id number]) IMPRESSION: No pulmonary embolus found. Increasing bilateral pleural effusions, greater on the left than the right, with increased bilateral atelectasis secondary to the effusions, and there is also superimposed mild pulmonary edema/lesser of the lung parenchyma with clear visualization of the areas of pre-existing emphysematous change as a result. Please also refer to dedicated abdomen/pelvis CT with contrast obtained today. Dictated by: Jacobo Antonio M.D. on 12/11/2016 at 13:57 Approved by: Jacobo Antonio M.D. on 12/11/2016 at 14:04 Date of Service: 12/11/16 1140 PROCEDURE: CT ABDOMEN AND PELVIS WITH CONTRAST ([id number]) IMPRESSION: 1. Moderate to large bilateral pleural effusions, mildly increased compared to prior exam. 2. Extensive hepatic metastatic disease, progressive compared to prior exam. 3. Marked abdominal pelvic ascites, increased from prior exam. 4. Extensive osseous metastatic disease, again noted. Dictated by: Sona Giang M.D. on 12/11/2016 at 12:59 Approved by: Snoa Giang M.D. on 12/11/2016 at 13:07 Assessment & Plan 56 year old female with known diagnosis of metastatic recurrent luminal-like breast cancer presents with progressive worsening of shortness of breath over the past several days. # Acute and recurring bilateral pleural effusions. Present on admission. - Most likely due to underlying metastatic breast cancer - Surgery consulted in ED for consideration of palliative intervention such as thoracentesis or cath/drain placement. Will followup with recs. - In the meantime will start comfort care protocol per patient's wishes. - IV morphine prn both for pain and SOB # History of metastatic luminal-like breast cancer - Patient tells me she wishes to pursue comfort care and palliative approach at this point - Per ED report her oncologist, Dr. Uribe, has been notified and will followup with further recs - Continue with supportive care as noted above # Acute hypoxic respiratory failure and distress, present on admission. - Due to pleural effusion and metastatic cancer noted above - Supportive care and plan as noted above # Elevated Trop, present on admission - Likely demand ischemia from underlying pulmonary edema/pleural effusions. - No further workup at this time per patient's wishes # History of hypothyroidism - Continue with home dose Levothyroxine # Goals of Care - Comfort Care Only - Palliative care and hospice consult in am Expected length of hospital stay is greater than 2 midnights and likely 2-3 days Resuscitation Status: DNR/DNI:Do Not Resuscitate/Intubate (discussed and verified with patient and her ) Time spent 60 min Talat Nava Dec 11, 2016 17:32
[2016-12-11] MEDS ORDERED: Polyethylene Glycol (PEG) 17 Gm Powder PO PRN (17:55)
[2016-12-11] MEDS ORDERED: Alum-Mag Hydrox-Simeth 30 mL Suspension PO PRN (17:55)
[2016-12-11] MEDS ORDERED: Ondansetron 2 mg/mL 2 mL Inj IVPUSH PRN (17:55)
--- NOTE | 2016-12-11 17:55 | DRSVH ---
PROCEDURE: US GUIDED THORACENTESIS BY REFERRING PHYSICIAN ([id number]) INDICATIONS: malignant left pleural effusion TECHNIQUE: The indications, alternatives, benefits, risks, and complications of the procedure were explained to the patient. Written informed consent was obtained and placed in the chart. The chest was examined sonographically, and an appropriate site was chosen for thoracentesis. The skin was prepared and cody ped in the usual sterile fashion, and 1% lidocaine was infiltrated from the skin down through the ple ural surface. A 19-gauge catheter-covered needle was then introduced into the pleural space, the cat heter was advanced and the needle was withdrawn, and thereafter pleural fluid was aspirated. The cat heter was then removed and a dressing was applied. COMPARISON: [facility], CR, XR CHEST 1VW (PORTABLE), 12/11/2016, 16:45. FINDINGS: Access site: Left hemithorax. Needle: One-Step centesis catheter with introducer needle. Fluid volume and description: Pure yellow [address] Barnett. Fluid sent for diagnostic testing: At the request of the ordering healthcare provider. Medications: 1% lidocaine for local anaesthesia. Complications: None; post-procedural chest radiograph is pending to assess for pneumothorax. IMPRESSION: Successful ultrasound-guided thoracentesis. Dictated by: Jacobo Antonio M.D. on 12/11/2016 at 17:52 Approved by: Jacobo Antonio M.D. on 12/11/2016 at 17:53
--- NOTE | 2016-12-11 17:57 | NUR ---
Admit Patient admitted from ED via gurney accompanied by family. Able to transfer to bed from [facility] minimal assist. Came to room on 15 L oxygen via pediatric oxy mask and has been titrated down to 7L and is satting 100% and reports she is comfortable breathing at the moment. IV infusing into patient's port. Patient and family oriented to room and plan has been gone over with family and patient. Patient asked if she was able to control oxygen flow-with oxygen connecting to the wall I instructed the patient to use her call light and we can adjust it as she needs. Patient reports 2/10 pain and states that is tolerable for her. Call light within reach. Family at bedside.
[2016-12-11] MEDS ORDERED: Pantoprazole 4 mg/mL 10 mL Inj IVPUSH ONE (18:25)
[2016-12-11] MEDS ORDERED: Famotidine Inj 20 MG in IV Premix 1 EACH IV ONE (18:45)
[2016-12-11] MEDS: Morphine ER 15 mg (MS Contin) Tablet PO SCH (20:03)
[2016-12-12 00:03] VITALS: BP 120/82; PULSE 103; RESP 17; O2SAT 100
--- NOTE | 2016-12-12 02:08 | NUR ---
Pain Patient ambulated to BR. given routine pain medication and instructed to request more if needed. During rounding will ask if she desired pain medication each time she refused. When asleep patient began to moan and accepted PRN pain medication. No noted decrease in moans, patient refused additional dose. will continue to monitor.
[2016-12-12 06:02] VITALS: BP 118/79; PULSE 105; RESP 18; O2SAT 99
[2016-12-12] MEDS: Pantoprazole 40 mg ER24 Tablet PO SCH (06:46)
[2016-12-12] MEDS: Morphine ER 15 mg (MS Contin) Tablet PO SCH ×2 (08:55→20:28)
[2016-12-12] MEDS ORDERED: Morphine 20 mg/mL Oral Syringe SL/PO PRN (10:20)
--- NOTE | 2016-12-12 10:26 | PROG NOTE ---
[address] [address] PROGRESS NOTE PATIENT: MILLICENT DEL REAL : 1960 MR#: [id number] ADMIT: 12/11/2016 JOB ID: [id number] DATE: 12/12/2016 SUBJECTIVE: The patient is being seen today per hospital rounds. Events over the past 24 hours are noted. The patient admitted to the inpatient service on comfort measures only on December 11, 2016. She presented to the ER with increasing shortness of breath at rest. states that up to that point she was doing relatively well, eating and in no significant pain. Imaging since being in the hospital: CTA of the chest, showing no evidence of PE. However, significant increase in left pleural effusion was noted. CT of the abdomen and pelvis, showing significant increase in necrosis of the liver with new lesions seen compared to the October 31, 2016 scan. Imaging studies were reviewed with myself and Dr. Ellis Menendez confirming disease progression. Scans confirmed refractoriness to current therapy of exemestane and everolimus. At this time, the patient and her have decided to move forward with hospice services only. Clinically, the patient is alert and oriented. Denies any pain. PHYSICAL EXAMINATION: Vital signs showing a blood pressure of 118/79, temperature 36, pulse 105, respiratory 18. She is satting at 99% on 7 L O2 mask. LABORATORY DATA: On admission showing a white cell count of 13, hemoglobin of 12, platelet count of 258. Sodium 135, potassium 5, serum creatinine 1.02, calcium 8.4, AST 152, ALT 51, alk phos 279. ASSESSMENT AND PLAN: The patient is a very pleasant 56-year-old female with end-stage breast cancer refractory to 5th line therapy exemestane and Afinitor. The patient has critical visceral disease with significant disease progression involving the liver confirmed on CT abdomen dated December 11, 2016. After a long discussion with , as well as the patient, the family would prefer to move forward with hospice measures only. They would like all treatments stopped at this time and for the patient to be home with family. Hospice consult for today and transfer to home was ordered. I spoke with Hospitalist and Dr. Kane Pate, regarding the overall plan per wishes of the family. [facility]
[2016-12-12 11:06] VITALS: BP 128/88; PULSE 111; RESP 18; O2SAT 100
--- NOTE | 2016-12-12 11:09 | NUR ---
Palliative Care BUS REPAIR SUPERVISOR Note12/12/1709:30AM D: This abstract writer met with pt.'s , Avery, to review Hospice choices as pt. and family would like to transition to comfort care focus and have pt. return home with Hospice support. Pt. was resting during the time this abstract writer visited. Hospice provider/choice list was reviewed with Avery who selected [facility] as family resides in [place]. Avery shared he wants pt. to DC home as soon as Hospice can start providing care support. He told this abstract writer there are several family members who are nurses and who will help with pt.'s care needs at home. Per Avery, pt. and family understand she is closer to dying and they have strong alma that 'God wants her back' and are ready to accept this. This abstract writer spoke with [facility] BUS REPAIR SUPERVISOR, Nichelle King, to let her know that family wants [facility] at time of DC. This BUS REPAIR SUPERVISOR offered to coordinate referral to [facility] and Nichelle agreed to this. This abstract writer spoke with [facility]. Per their request this abstract writer faxed pt.'s face sheet, Hospice order, and recent clinical documentation for review. [facility] was notified that further discharge coordination should be directed to Nichelle. The [facility] cell phone number was left with [facility] staff for this purpose. [facility] understands that the request for services is considered urgent due to pt.'s declining condition and need for symptom management once she discharges from [facility]. This abstract writer let pt.'s know that referral for [facility] has been made and they will be in touch with him ALEX regarding plan for pt. to start Hospice services at home. A: Family aware that pt. is closer to end of life and they are determined to help her return home with in-home hospice support. Per , some family members work in the medical field and are committed to assisting pt. with care needs. P: [facility] staff to continue coordinating discharge needs for pt. [facility] to provide in-home hospice care once pt. DC's from [facility]. Zaira Brand, BUS REPAIR SUPERVISOR, [facility] Services
--- NOTE | 2016-12-12 11:13 | NUR ---
Palliative Care Palliative Care received order from Dr Nava 12/11/16 (late) to assist with goals of care. Patient admitted 12/11/16. Avery Brice () [phone] Palliative Care to follow. Leena Atkinson
--- NOTE | 2016-12-12 11:25 | PCM.CONPAL ---
Date of Service Dec 12, 2016 Date of Hospital Admission: Dec 11, 2016 at 16:25 Date of Palliative Consult: Dec 12, 2016 Requesting Provider: Talat Nava Reason Palliative Care Consult: Goals of Care Discussion, Hospice Referral & Discussion Hospital Unit @time of consult: Orthopedic/Surgical Care Palliative Care Recommendation Unfortunate 56-year-old woman with widely metastatic breast cancer, admitted with progressive dyspnea and weakness in the setting of known bilateral malignant pleural effusions (L>R). Patient and her have expressed wish to transition to hospice/end-of-life care and discontinue ongoing chemotherapy. Palliative medicine consult to assist with symptom management, conversations regarding goals of care and hospice referral. Per surgical consultants, to have drainage catheter placed today (by either surgery or IR) Case discussed with OSC/city planner- she has communicated with [facility] and their plan is to meet the patient at her home in [place] on Thursday, 12/14 at 5 PM. At that time they would do their intake assessment and assume her care (my impression is that she will definitely be accepted by hospice so we can reasonably count on that as a plan). The only caveat would be if she deteriorates clinically over the next several days to the degree that she could not return home at all but would have to remain hospitalized or require SNF placement. Summary of palliative recommendations: -Symptom management (Pain/other)- continue sustained release morphine 15 mg twice daily. Continue IV MS prn breakthrough pain as ordered by hospitalist, but will also initiate oral morphine concentrate, 20 mg per mL, 5-20 mg PO/SL Q 2 hr prn breakthrough pain/dyspnea/distress. Start dexamethasone, 2 mg IV daily, with plan to transition to oral at time of discharge. Consider increasing dose in the coming days as tolerated/depending on response. This may provide multiple benefits including decreased discomfort , improved appetite, improved energy, decreased nausea, etc. Start scheduled olanzapine, 2.5 mg SL at HS for nausea. Adjust dose upwards in the coming days as needed. At her 's request, start Ambien 5 mg HS prn. He tells me this was recommended by a friend. He notes his has been a lifelong insomniac. -DPOA/Advanced Directives/POLST- DO NOT RESUSCITATE/DO NOT INTUBATE/ transitioning to hospice. Will assist patient in completing a POLST reflecting their wishes prior to discharge. -Family/emotional support- palliative will continue to follow and provide support. Will request supplier quality specialist visit. Additional Medical Diagnoses with primary management by Hospitalist team include : # Acute and recurring bilateral pleural effusions. Present on admission. # History of metastatic luminal-like breast cancer # Acute hypoxic respiratory failure and distress, present on admission. # Elevated Trop, present on admission # History of hypothyroidism Problems: End of Life Preferences DO NOT RESUSCITATE/DO NOT INTUBATE/transitioning to comfort-hospice care Goals of Care hopes she may return home as soon as possible with hospice support Disposition As above Resuscitation Status Resuscitation Status: DNR/DNI:Do Not Resuscitate/Intubate POLST Updates/Changes Previous POLST?: No . Advanced Care Planning Address: Comfort care Pain: Mild Symptom management: Nausea, Drowsiness/sleepiness, Dyspnea, Pain Pt History History of Present Illness Per admission H&P: Very pleasant 56 year old female with known diagnosis of metastatic recurrent luminal-like breast cancer, on fifth line therapy with exemestane and Afinitor that was started on November 06, 2016 presents with progressive worsening of shortness of breath over the past several days. She underwent therapeutic thoracentesis about one week ago but today the imaging in the ED (details as noted below) is suggestive of worsening bilateral pleural effusions. Patient is now requesting comfort care only approach and wishes to be setup with hospice at home. General surgery has been consulted in the ED for consideration of further palliative surgical intervention on this very pleasant but unfortunate patient. In addition to the chief complaint noted above patient also reports increased abdominal distention and discomfort. She also reports ongoing weight loss as well as peripheral neuropathy and parasthesias. Palliative medicine consulted to assist patient and her in determination of cause of care. Her also specifically requested information regarding referral to hospice. Prior to visiting, I reviewed her records in the EMR in detail, including her outpatient oncology records dating back to 2009. Spoke with her nurse and attempted to contact her oncologist, Dr. Uribe, by phone , but he was out of the office today. I did leave a message with his nurse regarding the patient's admission and her wish to transition to hospice. On my arrival, patient is found seated at side of bed. Her is with her. His primary interest was in finding out what we could do to help with her symptoms- her pain remains generally well controlled, but she continues to be dyspneic, nauseated and anorectic. We talked at length about these symptoms and options for therapy, but also talked about them in the setting of her advanced and progressive tumor burden. She noted she also has had chronic insomnia and requested Ambien (which he says had been recommended by a friend). See elsewhere for medication recommendations in response to her symptoms. We discussed hospice and confirmed his wish for a hospice informational visit. He is quite interested in activating hospice as soon as possible so that he will be able to continue to care for his at home. He notes that their 2 sons are returning from other parts of the country later today (they are both active duty but have obtained leave to come home). He inquired as to what our best guess might be of her survival and I advised him my sense was that, at best, her time remaining was measured in weeks (though , of course, that she was ill enough that she could sooner). He said that he did not want to do anything that would prolong her dying process and that they had talked and she wants to be allowed now to pass away naturally and peacefully. We talked about hospice management of symptoms, and the goal of optimizing quality of whatever time she has left and he thought that sounded perfect. (Because the patient lives in [place], palliative IMPROVEMENT ENGINEER communicated with [facility] who will become involved in her care as soon as possible.) Past Medical History Significant PMH Noted: 1. Recurrent metastatic breast cancer luminal like, biopsy proven from lung nodule dated November 29, 2014. 2. Left-sided stage III, T3 N2 breast cancer diagnosed in 2006 3. Osteopenia. Past Surgical History Left masectomy Social History Occupation: Medically disabled Family Members Issues: 's primary concern is the patient's comfort. He wondered what might be done to help with her appetite. His hope is to have her return home as soon as possible Social Support: Patient's 2 sons are returning from [id number] active duty to be with patient and Living Situation: As above Responsive Patient Symptoms Pain (current): Mild Nausea: Mild Drowsiness/Sleepiness: Mild Shortness of Breath: Mild POLST at Time of Admission Previous POLST?: No Allergy Allergies Reviewed: Yes Medications Current Medications: Current Medications Hydromorphone HCl 1 mg Q15MIN PRN IVPUSH Last administered on 12/11/16 11:40; Admin Dose 1 MG; Start 12/11/16 at 10:10; Stop 12/11/16 at 17:54; Status DC Al Hydrox/Mg Hydrox/Simethicone 30 ml Q6H PRN PO; Start 12/11/16 at 17:55 Ondansetron HCl 4 to 8 mg Q4H PRN IVPUSH; Start 12/11/16 at 17:55 Senna 17.2 mg BID PRN PO; Start 12/11/16 at 17:55 Polyethylene Glycol 17 gm DAILY PRN PO; Start 12/11/16 at 17:55 Acetaminophen 975 mg Q6H PRN PO; Start 12/11/16 at 17:55 Morphine Sulfate 1-4 mg Q1H PRN IV; Start 12/11/16 at 17:55; Stop 12/11/16 at 23:56; Status DC Albuterol 2.5 mg Q4H PRN NEB; Start 12/11/16 at 20:00 Docusate Sodium 250 mg BID PRN PO; Start 12/11/16 at 18:00 Levothyroxine Sodium 50 mcg DAILY PO Last administered on 12/12/16 08:54; Admin Dose 50 MCG; Start 12/12/16 at 08:30 Morphine Sulfate 15 mg BID PO Last administered on 12/12/16 08:55; Admin Dose 15 MG; Start 12/11/16 at 20:30 Loratadine 10 mg DAILY PRN PO; Start 12/12/16 at 08:30 Pantoprazole 40 mg 0630 PO Last administered on 12/12/16 06:46; Admin Dose 40 MG; Start 12/12/16 at 06:30 Morphine Sulfate 1-4 mg Q1H PRN IV Last administered on 12/12/16 04:50; Admin Dose 2 MG; Start 12/11/16 at 23:56 Scheduled Everolimus (Afinitor) 10 Mg Tablet 10 MG PO DAILY Exemestane (Aromasin) 25 Mg Tablet 25 MG PO DAILY Levothyroxine (Levothyroxine) 25 Mcg Tablet 50 MCG PO DAILY Morphine Sulfate ER (Morphine Sulfate ER) 15 Mg Tablet 15 MG PO BID Omeprazole (Omeprazole) 20 Mg Capsule.dr 20 MG PO DAILY Scheduled PRN Albuterol Neb Soln (Albuterol Neb Soln) 2.5 Mg/3 Ml Vial.neb 2.5 MG INHALATION Q4H PRN PRN For Cough Cetirizine (Cetirizine) 5 Mg Tablet 10 MG PO DAILY PRN PRN ALLERGY Docusate Sodium (Docusate Sodium) 250 Mg Capsule 250 MG PO BID PRN PRN For Constipation Morphine Sulfate (Morphine Sulfate) 15 Mg Tablet 15 MG PO DIRECTED PRN PRN For Pain Miscellaneous Medications Cholecalciferol (Vitamin D3) (Vitamin D3) 2,000 Unit Tablet 2,000 UNIT PO Multivitamin (Multivitamins) 1 Each Capsule 1 EACH PO Objective Findings Exam Vital Sign - Last Date Time Temp Pulse Resp B/P Pulse Ox O2 Delivery O2 Flow Rate FiO2 12/12/16 11:06 36.9 111 18 128/88 100 OxyMask 7.00 Intake and Output 12/11/16 12/11/16 12/12/16 Cumulative From/Thru 15:00 23:00 07:00 12/11/16 09:41 - 12/12/16 06:02 Intake Total 1000 ml 125 ml 323 ml 1448 ml Output Total 0 ml 300 ml 300 ml Balance 1000 ml 125 ml 23 ml 1148 ml Intake Oral 0 ml 0 ml 0 ml IV Total 1000 ml 125 ml 323 ml 1448 ml Output Urine Total 0 ml 300 ml 300 ml # Bowel Movements 0 0 Objective Very frail-appearing [place] woman sitting at bedside. Vital signs noted. Skin is warm and dry. Head and neck exam without acute focal findings. Heart sounds regular, lungs with decreased breath sounds at both bases. Abdomen is ascitic/distended with minimal tenderness (abdominal CT reveals significant ascites and marked hepatomegaly with metastatic disease). Lower extremities with edema. Lab/Diagnostics Lab and Imaging results reviewed in detail in EMR. Time spent Total time 65 minutes; >50% face to face with patient and family, providing counselling regarding plans and recommendations, and in care coordination with her medical teams. Of the above total time, 15 minutes counseling for advanced care planning with the patient and her , reviewing their goals and wishes and to transition to hospice. copies to: Lane Uribe DO; Marisol Cosby MD, David F MD Dec 12, 2016 11:25
[2016-12-12] MEDS: Dexamethasone 4 mg/mL Inj IVPUSH SCH (12:07)
--- NOTE | 2016-12-12 15:00 | NUR ---
spiritual care: pall care provider request resource-connection visit and blessing/prayer. Pt's family member reported anticipating visit from senior sales executive. pt also appreciative of eucharistic visitor support. able to follow as needed.
--- NOTE | 2016-12-12 15:37 | PCM.PNMED ---
Subjective Date of Service Dec 12, 2016 Subjective Denies any new issues. Continues to report shortness of breath and abdominal discomfort. Exam Vital Signs Vital Sign - Last Date Time Temp Pulse Resp B/P Pulse Ox O2 Delivery O2 Flow Rate FiO2 12/12/16 11:06 36.9 111 18 128/88 100 OxyMask 7.00 Intake and Output 12/11/16 12/11/16 12/12/16 Cumulative From/Thru 15:00 23:00 07:00 12/11/16 09:41 - 12/12/16 06:02 Intake Total 1000 ml 125 ml 323 ml 1448 ml Output Total 0 ml 300 ml 300 ml Balance 1000 ml 125 ml 23 ml 1148 ml Intake Oral 0 ml 0 ml 0 ml IV Total 1000 ml 125 ml 323 ml 1448 ml Output Urine Total 0 ml 300 ml 300 ml # Bowel Movements 0 0 Exam General: Alert, Cooperative, Mild Distress Head: Normal Eyes: Scleral Anicteric Nose: Mucous Membr Moist/[place] Mouth: Mucous Membr Moist/[place] Neck: Supple Chest & Lungs: Chest Wall Normal, Coarse breath sounds, Crackles (fine bilateral) Cardiovascular: Regular Rate/Rhythm Abdomen: Tender, Distended, Normoactive bowel tones Extremities: Other (2+ pitting edema in LE bilaterally up to the knees) Neurological: Grossly Neurologically Intact, Cranial Nerves 2-12 Intact, Normal Speech Psych: Calm, pleasant, appropriate IVs and Medications Medications Reviewed: Medications were reviewed in detail Lab and Diagnostics Result Diagram: 12/11/16 1007 12/11/16 1007 X-Rays, CTs and MRIs Date of Service: 12/11/16 1002 PROCEDURE: X-RAY CHEST ONE VIEW, PORTABLE ([id number]) IMPRESSION: 1. Pulmonary edema. 2. Small bilateral pleural fluid collections, left greater than right. 3. Increased opacification left lung base compatible with compressive atelectasis versus less likely pneumonia or aspiration. Please correlate with clinical and laboratory data. Dictated by: Marissa Lopez MD, PhD on 12/11/2016 at 10:41 Approved by: Marissa Lopez MD, PhD on 12/11/2016 at 10:43 Date of Service: 12/11/16 1121 PROCEDURE: CT ANGIO CHEST PULMONARY EMBOLISM ([id number]) IMPRESSION: No pulmonary embolus found. Increasing bilateral pleural effusions, greater on the left than the right, with increased bilateral atelectasis secondary to the effusions, and there is also superimposed mild pulmonary edema/lesser of the lung parenchyma with clear visualization of the areas of pre-existing emphysematous change as a result. Please also refer to dedicated abdomen/pelvis CT with contrast obtained today. Dictated by: Jacobo Antonio M.D. on 12/11/2016 at 13:57 Approved by: Jacobo Antonio M.D. on 12/11/2016 at 14:04 Date of Service: 12/11/16 1140 PROCEDURE: CT ABDOMEN AND PELVIS WITH CONTRAST ([id number]) IMPRESSION: 1. Moderate to large bilateral pleural effusions, mildly increased compared to prior exam. 2. Extensive hepatic metastatic disease, progressive compared to prior exam. 3. Marked abdominal pelvic ascites, increased from prior exam. 4. Extensive osseous metastatic disease, again noted. Dictated by: Sona Giang M.D. on 12/11/2016 at 12:59 Approved by: Sona Giang M.D. on 12/11/2016 at 13:07 Assessment & Plan 56 year old female with known diagnosis of metastatic recurrent luminal-like breast cancer presents with progressive worsening of shortness of breath over the past several days. # Acute and recurring bilateral pleural effusions. Present on admission. - Most likely due to underlying metastatic breast cancer - Appreciate surgery consult. Will followup with recs. - Continue with comfort care protocol per patient's wishes. - IV morphine prn both for pain and SOB # History of metastatic luminal-like breast cancer - Appreciate oncology consult. Will followup with recs - Continue with supportive care as noted above # Acute hypoxic respiratory failure and distress, present on admission. - Due to pleural effusion and metastatic cancer noted above - Supportive care # Elevated Trop, present on admission - Likely demand ischemia from underlying pulmonary edema/pleural effusions. - No further workup at this time per patient's wishes # History of hypothyroidism - Continue with home dose Levothyroxine # Goals of Care - Comfort Care Only - Appreciate palliative care consult. Will followup with recs - Awaiting hospice consult Dispo: Likely home with hospice in 1-2 days VTE Mechanical Devices: Intermittant Pneumatic CD Resuscitation Status: DNR/DNI:Do Not Resuscitate/Intubate Talat Nava Dec 12, 2016 15:37
--- NOTE | 2016-12-12 16:33 | NUR ---
O2/activity/pain Pt using 6L via oximask intermittently. She does get anxious when the mask is not flowing and nearby. Bedrest for most of shift. She did sit up on edge of bed to eat and walked to BR with nurse assist. Generalized weakness and unsteady on feet. She does not attempt to get out of bed without assist. Denies pain most of shift, but complains of SOB. Scheduled morphine given. Pt and family aware of prn morphine and agree to ask if needed.
--- NOTE | 2016-12-12 19:17 | PCM.ADCARE ---
Advance Care Planning Note Purpose of Encounter: Goals of care regarding breast cancer Parties in Attendance: patient and her Decisional Capacity: decisional Subjective: continued shortness of breath Objective: awake and alert Goals of Care Determinations: patient does not wish to have any further interventions at this time and wishes to go home with hospice as soon as possible Plan: home with hospice CODE STATUS: DNR/DNI/Comfort care only Time Spent Adv.Care Plannin minutes of face to face answering patient and her husbands questions about current plan of care and test results from admission. Talat Nava Dec 12, 2016 19:17
[2016-12-12] MEDS: OLANZapine Zydis ODT 5 mg Tablet SL SCH (20:28)
[2016-12-13] VITALS (7 sets, daily range): BP systolic 116–122; BP diastolic 81–85; PULSE 106–121; RESP 18–20; O2SAT 96–99
--- NOTE | 2016-12-13 05:31 | NUR ---
Pain/Nausea? Breathing Routine pain and nausea medication effective through out shift. C/O difficulty breathing RT notified and PRN NEB treatment administered. Family at bed side. Intentional rounding and care continues.
[2016-12-13] MEDS: Albuterol 2.5 mg/3 mL Inhalation Solution NEB PRN ×4 (05:45→22:19)
[2016-12-13] MEDS: Dexamethasone 4 mg/mL Inj IVPUSH SCH (08:23)
[2016-12-13] MEDS: Morphine 2 mg/mL 5 mL Oral Solution PO PRN ×2 (08:24→23:29)
[2016-12-13] MEDS: Pantoprazole 40 mg ER24 Tablet PO SCH (08:25)
[2016-12-13] MEDS: Morphine ER 15 mg (MS Contin) Tablet PO SCH ×2 (14:08→20:28)
--- NOTE | 2016-12-13 17:58 | PCM.PNMED ---
Subjective Date of Service Dec 13, 2016 Subjective Denies any new issues. Exam Vital Signs Vital Sign - Last Date Time Temp Pulse Resp B/P Pulse Ox O2 Delivery O2 Flow Rate FiO2 12/13/16 16:41 36.6 117 18 117/81 98 OxyMask 7.00 Intake and Output 12/12/16 12/12/16 12/13/16 Cumulative From/Thru 15:00 23:00 07:00 12/11/16 09:41 - 12/13/16 06:54 Intake Total 200 ml 1648 ml Output Total 300 ml Balance 200 ml 1348 ml Intake Oral 200 ml 200 ml IV Total 1448 ml Output Urine Total 300 ml # Voids 1 2 3 # Bowel Movements 0 0 Exam Full exam deferred due to patient being comfort care only now. General: Comfortable. No acute distress. Eyes: Scleral Anicteric Nose: Mucous Membr Moist/[place] Mouth: Mucous Membr Moist/[place] Neck: Supple IVs and Medications Medications Reviewed: Medications were reviewed in detail Lab and Diagnostics Result Diagram: 12/11/16 1007 12/11/16 1007 X-Rays, CTs and MRIs Date of Service: 12/11/16 1002 PROCEDURE: X-RAY CHEST ONE VIEW, PORTABLE ([id number]) IMPRESSION: 1. Pulmonary edema. 2. Small bilateral pleural fluid collections, left greater than right. 3. Increased opacification left lung base compatible with compressive atelectasis versus less likely pneumonia or aspiration. Please correlate with clinical and laboratory data. Dictated by: Marissa Lopez MD, PhD on 12/11/2016 at 10:41 Approved by: Marissa Lopez MD, PhD on 12/11/2016 at 10:43 Date of Service: 12/11/16 1121 PROCEDURE: CT ANGIO CHEST PULMONARY EMBOLISM ([id number]) IMPRESSION: No pulmonary embolus found. Increasing bilateral pleural effusions, greater on the left than the right, with increased bilateral atelectasis secondary to the effusions, and there is also superimposed mild pulmonary edema/lesser of the lung parenchyma with clear visualization of the areas of pre-existing emphysematous change as a result. Please also refer to dedicated abdomen/pelvis CT with contrast obtained today. Dictated by: Jacobo Antonio M.D. on 12/11/2016 at 13:57 Approved by: Jacobo Antonio M.D. on 12/11/2016 at 14:04 Date of Service: 12/11/16 1140 PROCEDURE: CT ABDOMEN AND PELVIS WITH CONTRAST ([id number]) IMPRESSION: 1. Moderate to large bilateral pleural effusions, mildly increased compared to prior exam. 2. Extensive hepatic metastatic disease, progressive compared to prior exam. 3. Marked abdominal pelvic ascites, increased from prior exam. 4. Extensive osseous metastatic disease, again noted. Dictated by: Sona Giang M.D. on 12/11/2016 at 12:59 Approved by: Sona Giang M.D. on 12/11/2016 at 13:07 Assessment & Plan 56 year old female with known diagnosis of metastatic recurrent luminal-like breast cancer presents with progressive worsening of shortness of breath over the past several days. # Acute and recurring bilateral pleural effusions. Present on admission. - Most likely due to underlying metastatic breast cancer - Appreciate surgery consult. Will followup with recs. - Continue with comfort care protocol per patient's wishes. - IV morphine prn both for pain and SOB # History of metastatic luminal-like breast cancer - Appreciate oncology consult. Will followup with recs - Continue with supportive care as noted above # Acute hypoxic respiratory failure and distress, present on admission. - Due to pleural effusion and metastatic cancer noted above - Supportive care # Elevated Trop, present on admission - Likely demand ischemia from underlying pulmonary edema/pleural effusions. - No further workup at this time per patient's wishes # History of hypothyroidism - Continue with home dose Levothyroxine # Goals of Care - Comfort Care Only - Appreciate palliative care consult. Will followup with recs - Awaiting hospice consult Dispo: Likely home with hospice in AM VTE Mechanical Devices: Intermittant Pneumatic CD Resuscitation Status: DNR/DNI:Do Not Resuscitate/Intubate Talat Nava Dec 13, 2016 17:58
--- NOTE | 2016-12-13 18:34 | NUR ---
SOB/cough Pt. continues to have intermittent boughts of SOB, "unable to catch my breath, have a crackling sound in my throat." RT has been called for neb tx Q4 hrs; pt. reporting ease of breathing and ability to bring up secretions post neb tx. Pt. has been given 2mg IV morphine to help ease breathing and for comfort. Pt. and family report that this has been helpful. Pt. has an irritable cough; also complaining that she is having difficulty drinking thin liquids. Liquids thickened with thickener; helpful and more tolerable per pt. Pt. would like somthing for cough and also to have ensure with meals. paged for this request. Have not received reply. Pt. currently resting, denies pain. High fowlers position at all times. Family at bedside. Care continues.
[2016-12-13] MEDS: OLANZapine Zydis ODT 5 mg Tablet SL SCH (20:28)
[2016-12-14] VITALS (7 sets, daily range): BP systolic 101–123; BP diastolic 52–79; PULSE 107–117; RESP 16–20; O2SAT 92–100
[2016-12-14] MEDS: Morphine 2 mg/mL 5 mL Oral Solution PO PRN ×3 (04:34→14:40)
--- NOTE | 2016-12-14 04:46 | NUR ---
Cough Patient c/o painful persistent cough, Hospitalist notified. New cough medication in combination with liquid pain medications was effective for managing cough. Up with assistance to bathroom, family at bedside. Noted edema in all extremities. O2 saturation 87-99% on 7L O2 depending on severity of cough. single NEB treatment given correction through shift, patient denied need for repeat administration when asked. Care continues
[2016-12-14] MEDS: Pantoprazole 40 mg ER24 Tablet PO SCH (06:30)
[2016-12-14] MEDS ORDERED: 0.9% Sodium Chloride 250 ML IV SCH (08:24)
[2016-12-14] MEDS ORDERED: Sodium Chloride LOK Flush 10 mL Syringe IVFLUSH PRN ×2 (08:25)
[2016-12-14] MEDS ORDERED: HepLOK Flush 100 unit/mL 5 mL Inj IVFLUSH PRN (08:25)
[2016-12-14] MEDS: Morphine ER 15 mg (MS Contin) Tablet PO SCH (08:30)
[2016-12-14] MEDS: Dexamethasone 4 mg/mL Inj IVPUSH SCH (08:41)
[2016-12-14] MEDS: Albuterol 2.5 mg/3 mL Inhalation Solution NEB PRN ×2 (09:58→14:54)
--- NOTE | 2016-12-14 10:30 | NUR ---
Hospice Discharge Communication between MD and Pt Pt and sons at expressed verbal concern about pt going home or discharge to home with Hospice today as they states "no one from Hospice has contacted us and we do not have equipment or experienced people at home to care for her." expressed verbally that I am upset that no one has contacted me and that I don't have a proper bed for her to go home, stated "I don't care if insurance does not pay for her stay here tonight, I will pay for it." Sons were in agreement. MD present for conversation and stated, she could stay one more night or until Hospice has made contact and things in place for her to go home. Sons and relieved at conversation.
[2016-12-14] MEDS ORDERED: BENZ100C8 PO (10:32)
[2016-12-14] MEDS ORDERED: ZLP5T PO (10:32)
[2016-12-14] MEDS ORDERED: MORP10SO PO (10:32)
[2016-12-14] MEDS ORDERED: OLAN5TAB25 SL (10:32)
[2016-12-14] MEDS ORDERED: SENN-133 PO (10:32)
[2016-12-14] MEDS ORDERED: DEX1 PO (10:32)
[2016-12-14] MEDS ORDERED: POLY17PO6 PO (10:32)
--- NOTE | 2016-12-14 11:01 | NUR ---
Medications Pt refusing PO medication this morning, except liquid PO Morphine; pt requested Neb treatment this morning and states "feels better" after treatment by RT given; pt O2 turned down to 6L Oxymask and humidified. Noted agonal breathing after Neb treatment; IV 2mg Morphine suggested to pt and family and both in agreement. IV 2mg Morphine administered, pt seemed more relaxed and at rest. Will continue to monitor with frequent rounds.
--- NOTE | 2016-12-14 16:15 | PCM.DIMED ---
Discharge Instructions Date of Service Dec 14, 2016 Dates of Hospitalization Dec 11, 2016 at 16:25 Discharge Diagnosis Discharge Diagnosis # Acute and recurring bilateral pleural effusions. Present on admission. - Most likely due to underlying metastatic breast cancer # History of metastatic luminal-like breast cancer # Acute hypoxic respiratory failure and distress, present on admission. - Due to pleural effusion and metastatic cancer noted above # Elevated Trop, present on admission - Likely demand ischemia from underlying pulmonary edema/pleural effusions. # History of hypothyroidism Diet Discharge Diet: No restrictions Activity Discharge Activity: No restrictions Patient Instructions Patient Instructions Home hospice with BLS transportation Follow-up plan Followup with primary care provider and oncology as needed. Follow-up Provider: Marisol Cosby MD Provider: Lane Uribe Masoud Dec 14, 2016 16:15
--- NOTE | 2016-12-14 16:35 | PCM.DC.MED ---
Discharge Summary Date of Service Dec 14, 2016 Dates of Hospitalization Date of Hospital Admission Dec 11, 2016 at 16:25 Date of Discharge: Dec 14, 2016 Providers: Admitting Physician: Talat Rankin Primary Care Physician: Marisol Cosby MD Attending Physician: Talat Rankin Diagnosis at Time of Discharge Diagnosis at Time of Discharge # Acute and recurring bilateral pleural effusions. Present on admission. - Most likely due to underlying metastatic breast cancer # History of metastatic luminal-like breast cancer # Acute hypoxic respiratory failure and distress, present on admission. - Due to pleural effusion and metastatic cancer noted above # Elevated Trop, present on admission - Likely demand ischemia from underlying pulmonary edema/pleural effusions. # History of hypothyroidism Consultations 1. Oncology 2. Surgery 3. Palliative Care Procedures XRay, CTs & MRIs Date of Service: 12/11/16 1002 PROCEDURE: X-RAY CHEST ONE VIEW, PORTABLE ([id number]) IMPRESSION: 1. Pulmonary edema. 2. Small bilateral pleural fluid collections, left greater than right. 3. Increased opacification left lung base compatible with compressive atelectasis versus less likely pneumonia or aspiration. Please correlate with clinical and laboratory data. Dictated by: Marissa Lopez MD, PhD on 12/11/2016 at 10:41 Approved by: Marissa Lopez MD, PhD on 12/11/2016 at 10:43 Date of Service: 12/11/16 1121 PROCEDURE: CT ANGIO CHEST PULMONARY EMBOLISM ([id number]) IMPRESSION: No pulmonary embolus found. Increasing bilateral pleural effusions, greater on the left than the right, with increased bilateral atelectasis secondary to the effusions, and there is also superimposed mild pulmonary edema/lesser of the lung parenchyma with clear visualization of the areas of pre-existing emphysematous change as a result. Please also refer to dedicated abdomen/pelvis CT with contrast obtained today. Dictated by: Jacobo Antonio M.D. on 12/11/2016 at 13:57 Approved by: Jacobo Antonio M.D. on 12/11/2016 at 14:04 Date of Service: 12/11/16 1140 PROCEDURE: CT ABDOMEN AND PELVIS WITH CONTRAST ([id number]) IMPRESSION: 1. Moderate to large bilateral pleural effusions, mildly increased compared to prior exam. 2. Extensive hepatic metastatic disease, progressive compared to prior exam. 3. Marked abdominal pelvic ascites, increased from prior exam. 4. Extensive osseous metastatic disease, again noted. Dictated by: Sona Giang M.D. on 12/11/2016 at 12:59 Approved by: Sona Giang M.D. on 12/11/2016 at 13:07 Brief History Very pleasant 56 year old female with known diagnosis of metastatic recurrent luminal-like breast cancer, on fifth line therapy with exemestane and Afinitor that was started on November 06, 2016 presents with progressive worsening of shortness of breath over the past several days. She underwent therapeutic thoracentesis about one week ago but today the imaging in the ED (details as noted below) is suggestive of worsening bilateral pleural effusions. Patient is now requesting comfort care only approach and wishes to be setup with hospice at home. General surgery has been consulted in the ED for consideration of further palliative surgical intervention on this very pleasant but unfortunate patient. In addition to the chief complaint noted above patient also reports increased abdominal distention and discomfort. She also reports ongoing weight loss as well as peripheral neuropathy and parasthesias. Hospital Course # Acute and recurring bilateral pleural effusions. Present on admission. - Most likely due to underlying metastatic breast cancer - Appreciate surgery consult. No further intervention recommended at this time. - Continued with comfort care protocol per patient's wishes. # History of metastatic luminal-like breast cancer - Appreciate oncology consult. Dr. Uribe agrees with patient moving to comfort care and hospice. - Continued with supportive care # Acute hypoxic respiratory failure and distress, present on admission. - Due to pleural effusion and metastatic cancer noted above - Supportive care # Elevated Trop, present on admission - Likely demand ischemia from underlying pulmonary edema/pleural effusions. - No further workup at this time per patient's wishes # History of hypothyroidism - Continued with home dose Levothyroxine # Goals of Care - Comfort Care Only - Appreciate palliative care consult. Patient to d/c home with medications noted below - Hospice expected to open later today at 6PM. Patient is to transport via BLS and plan of care discussed with patient's who agrees. Exam Vital Signs (Last) Date Time Temp Pulse Resp B/P Pulse Ox O2 Delivery O2 Flow Rate FiO2 12/14/16 16:02 36.2 111 18 101/60 99 OxyMask 6.00 Exam NAD. Comfortable Test 12/11/16 10:07 12/12/16 11:00 White Blood Count 13.4th/mm3 (3.8-10.1) Red Blood Count 4.44mil/mm3 (3.90-5.20) Hemoglobin 12.6g/dL (12.0-15.6) Hematocrit 40.3% (35.0-46.0) Mean Corpuscular Volume 90.8fL (81-100) Mean Corpuscular Hemoglobin 28.4pg (27.0-35.0) Mean Corpuscular Hemoglobin Concent 31.3% (32.0-37.0) Red Cell Distribution Width 17.0% (12.3-15.4) Platelet Count 258bil/L (150-400) Neutrophils (%) (Auto) 92.0% (40-74) Lymphocytes (%) (Auto) 2.2% (14-46) Monocytes (%) (Auto) 5.3% (4-12) Eosinophils (%) (Auto) 0.2% (0-5) Basophils (%) (Auto) 0% (0-3) Sodium Level 135mEq/L (134-144) Potassium Level 5.0mEq/L (3.5-5.2) Chloride Level 96mEq/L (97-108) Carbon Dioxide Level 19mmol/L (18-29) Blood Urea Nitrogen 30mg/dL (6-24) Creatinine 1.02mg/dL (0.57-1.00) Estimat Glomerular Filtration Rate 80mL/min (>59) Glucose Level 110mg/dL (60-99) Calcium Level 8.4mg/dL (8.5-10.1) Total Bilirubin 0.8mg/dL (0.0-1.2) Aspartate Amino Transf (AST/SGOT) 152U/L (0-50) Alanine Aminotransferase (ALT/SGPT) 51U/L (0-32) Alkaline Phosphatase 279U/L (25-150) Troponin T 0.047ug/L (0.0-0.011) Total Protein 6.7g/dL (6.4-8.4) Albumin 3.0g/dL (3.4-5.0) Procalcitonin 0.67ng/mL (0.00-0.08) Hold Patino Top Tube Received (Received) Prothrombin Time 10.7sec (8.1-12.5) Prothromb Time International Ratio 1.00ratio Discharge Medications Discharge Medications Dexamethasone (Dexamethasone) 1 Mg Tab 2 MG PO DAILY Prescribed by: TALAT RANKIN MD Levothyroxine (Levothyroxine) 25 Mcg Tablet 50 MCG PO DAILY (Reported) Morphine Sulfate ER (Morphine Sulfate ER) 15 Mg Tablet 15 MG PO BID (Reported) Olanzapine ODT (Zyprexa Zydis) 5 Mg Tablet 2.5 MG SL HS Prescribed by: TALAT RANKIN MD Omeprazole (Omeprazole) 20 Mg Capsule.dr 20 MG PO DAILY (Reported) As needed Albuterol Neb Soln (Albuterol Neb Soln) 2.5 Mg/3 Ml Vial.neb 2.5 MG INHALATION Q4H PRN PRN For Cough Prescribed by: NICKI GILMAN MD Benzonatate (Benzonatate) 100 Mg Capsule 100 MG PO TID PRN PRN For Cough Prescribed by: TALAT RANKIN MD Cetirizine (Cetirizine) 5 Mg Tablet 10 MG PO DAILY PRN PRN ALLERGY (Reported) Docusate Sodium (Docusate Sodium) 250 Mg Capsule 250 MG PO BID PRN PRN For Constipation (Reported) Morphine Sulfate Oral Soln (Morphine Sulfate Oral Soln) 10 Mg/5 Ml Solution 5- 20 MG PO Q2H PRN PRN For Pain Prescribed by: TALAT RANKIN MD Polyethylene Glycol 3350 (Miralax) 17 Gm Powd.pack 17 GM PO DAILY PRN PRN For Constipation Prescribed by: TALAT RANKIN MD Sennosides (Senna) 8.6 Mg Tablet 17.2 MG PO BID PRN PRN For Constipation Prescribed by: TALAT RANKIN MD Zolpidem (Ambien) 5 Mg Tablet 5 MG PO HS PRN PRN Insomnia Prescribed by: TALAT RANKIN MD Followup Plan Disposition: Home with hospice Follow-up plan Followup with primary care provider and oncology as needed. Discharge Diet: No restrictions Discharge Activity: No restrictions Patient Instructions Home hospice with BLS transportation Follow-up Provider: Marisol Cosby MD Provider: Lane Uribe DO Time spent 40 min copies to: Lane Uribe DO; Marisol Cosby MD, Masoud Dec 14, 2016 16:35 Discharge Medications Dexamethasone (Dexamethasone) 1 Mg Tab 2 MG PO DAILY Prescribed by: TALAT RANKIN MD Levothyroxine (Levothyroxine) 25 Mcg Tablet 50 MCG PO DAILY (Reported) Morphine Sulfate ER (Morphine Sulfate ER) 15 Mg Tablet 15 MG PO BID (Reported) Olanzapine ODT (Zyprexa Zydis) 5 Mg Tablet 2.5 MG SL HS Prescribed by: TALAT RANKIN MD Omeprazole (Omeprazole) 20 Mg Capsule.dr 20 MG PO DAILY (Reported) As needed Albuterol Neb Soln (Albuterol Neb Soln) 2.5 Mg/3 Ml Vial.neb 2.5 MG INHALATION Q4H PRN PRN For Cough Prescribed by: NICKI GILMAN MD Benzonatate (Benzonatate) 100 Mg Capsule 100 MG PO TID PRN PRN For Cough Prescribed by: TALAT RANKIN MD Cetirizine (Cetirizine) 5 Mg Tablet 10 MG PO DAILY PRN PRN ALLERGY (Reported) Docusate Sodium (Docusate Sodium) 250 Mg Capsule 250 MG PO BID PRN PRN For Constipation (Reported) Morphine Sulfate Oral Soln (Morphine Sulfate Oral Soln) 10 Mg/5 Ml Solution 5- 20 MG PO Q2H PRN PRN For Pain Prescribed by: TALAT RANKIN MD Polyethylene Glycol 3350 (Miralax) 17 Gm Powd.pack 17 GM PO DAILY PRN PRN For Constipation Prescribed by: TALAT RANKIN MD Sennosides (Senna) 8.6 Mg Tablet 17.2 MG PO BID PRN PRN For Constipation Prescribed by: TALAT RANKIN MD Zolpidem (Ambien) 5 Mg Tablet 5 MG PO HS PRN PRN Insomnia Prescribed by: TALAT RANKIN MD Followup Plan Follow-up plan Followup with primary care provider and oncology as needed. Discharge Diet: No restrictions Discharge Activity: No restrictions Patient Instructions Home hospice with BLS transportation Follow-up Provider: Marisol Cosby MD Provider: Lane Uribe Masoud Dec 14, 2016 16:35
--- NOTE | 2016-12-14 17:06 | NUR ---
Social Work: Discharge D: EMR reviewed. Pt is on day 3 of hospitalization. Per RN and MD, pt's spouse stated hospice equipment was not delivered and pt does not want to open with hospice now. SW met with pt's spouse and confirmed equipment was delivered 12/13 but he did not sign for it, his son did. When he came home, he saw equipment and didn't receive a phone call. Spouse thought that because hospice didn't call to confirm open time, hospice was not going to open. SW asked if spouse still wants hospice. Spouse agreeable and would like to open today. T/C to Marie at [facility]. Marie stated that spouse was contacted and opening date/time confirmed for today at 1700. SW asked if hospice could open at 1800 due to miscommunication. Marie contacted window cutter Debi who said she could open with pt at 1800 today. T/C to spouse confirming hospice can open today at 1800. Spouse agreeable. T/C to [facility] requesting transport at 1700. [facility] confirmed pt's insurance will cover transport and will arrive at 1715. [facility] confirmed they will arrive to pt's home at 1800. T/C to Marie at [facility] stating that [facility] will transport pt at 1715 and could be a little late due to traffic. Marie confirmed Debi the window cutter will be made aware of this and will wait for pt to arrive. T/C to spouse confirming transport time, [facility] insurance coverage, and that window cutter Debi will arrive at 1800 to open hospice. Spouse stated he will be home for hospice opening. A: Pt for whom hospice is medically necessary. P: Pt to discharge on 6L 02 via [facility] at 1715. RN and NWA updated on O2 needs for transport. Pt to open with [place] [facility] at 1800. Pt's spouse will be home at 1800 to meet Debi and Debi made aware that transport may be a little later than 1800 due to traffic. All updated and agreeable to discharge plan. CONOR Nassar Addendum: 12/14/16 at 1719 by JUNI OLMSTEAD SS and RN present for phone conversation with spouse. SW had spouse repeat plan to MD. RN witnessed confirmation of plan with hospice via T/C.
--- NOTE | 2016-12-14 17:49 | NUR ---
Discharge Pt to discharge to home with family by way of BLS and appt for Hospice scheduled 6pm tonight; no c/o pain 2mg IV Morphine given 1640 before access to port-a-cath discontinued by IV Therapy staff. 6L O2 Oxymask, SPO2 mid 90's; pt extremities cool to the touch and trace edema noted bilaterally lower and upper. Pt belongings with family members and took belongings previously to leaving room earlier in shift before discharge. Pt brother and sister walked off unit. Pt discharge packet with Rx's with BLS team at time of discharge.
== END 2016-12-14 17:15 | disposition hospice, home (50) | DRG 597 ==
LOC: SED 09:39 → OSC 16:25
PROVIDERS: ADMIT Internal Medicine; ATTEND Internal Medicine
PROC: 0W9B3ZX Drainage of Left Pleural Cavity, Percutaneous Approach, Diagnostic (ICD-10-PCS; principal; 2016-12-11)
DX: C50.912 Malignant neoplasm of unspecified site of left female breast (principal); J96.01 Acute respiratory failure with hypoxia; C78.7 Secondary malignant neoplasm of liver and intrahepatic bile duct; C79.51 Secondary malignant neoplasm of bone; J91.0 Malignant pleural effusion; R63.4 Abnormal weight loss; Z68.23 Body mass index [BMI] 23.0-23.9, adult; Z66 Do not resuscitate; Z51.5 Encounter for palliative care; G62.9 Polyneuropathy, unspecified; E03.9 Hypothyroidism, unspecified